=== PATIENT | female | born 1965 | race Caucasian/White ===

== ENCOUNTER 2020-12-07 13:04 | Inpatient (IN) | payer MEDICAID ==
[~2020-12-07] VITALS: Ht 165.1 cm; Wt 78.6 kg
[2020-12-07] MEDS ORDERED: KETOROLAC 30MG/ML VIAL IV STA (14:01)
[2020-12-07] MEDS ORDERED: AZITHROMYCIN 500 MG in DEXT 5% WATER 250 ML IV SCH (14:15)
[2020-12-07 14:27] LABS: BASOPHILS % 0.3 % (0.0-2.0); HEMATOCRIT. 42.3 % (36.0-48.0); HEMOGLOBIN. 14.3 g/dL (12.0-16.0); LYMPHOCYTES % 12.1 % (20.0-50.0); MEAN CORPUSCULAR HEMOGLOBIN 29.6 pg (28.0-32.0); MEAN CORPUSCULAR VOLUME 87.8 fL (81.0-99.0); MEAN PLATELET VOLUME 9.5 fl (7.4-10.4); MONOCYTES % 7.7 % (2.0-8.0); NEUTROPHILS % 79.9 % (40.0-76.0); PLATELET 159 x1000/uL (130-400); RED BLOOD CELL COUNT 4.82 mill/uL (4.2-5.4); RED CELL DISTRIBUTION WIDTH 12.9 % (11.6-14.6)
[2020-12-07 14:35] LABS: CHLORIDE 97 mEq/L (98-107)
[2020-12-07 14:46] LABS: D-DIMER 1.45 mg/L FEU (<0.50); PROTHROMBIN TIME 10.5 sec (9.6-11.0)
[2020-12-07 14:48] LABS: ETHANOL BLOOD < 10 mg/dL
[2020-12-07 14:52] LABS: BG CARBOXYHEMOGLOBIN 0.7 % (0.5-1.5); BG DEOXYHEMOGLOBIN 1.5 % (0.0-5.0); BG FRACTION INSPIRED OXYGEN 40; BG HCO3 ACT 19.7 mmol/L (22.0-26.0); BG METHEMOGLOBIN 0.3 % (0.0-1.5); BG OXYGEN SATURATION 98.5 % (92.0-98.5); BG OXYHEMOGLOBIN 97.5 % (94.0-97.0); BG PCO2 29.2 mmHg (35.0-45.0); BG PH 7.448 (7.350-7.450); BG PO2 121.1 mmHg (75.0-100.0); BG SAMPLE SITE LEFT BRACHIAL; BG TOTAL HEMOGLOBIN 13.9 g/dL (12.0-18.0); BG VENT MODE NASAL CANNULA
[2020-12-07 16:18] LABS: *AMPHETAMINES SCREEN URINE NEGATIVE (NEGATIVE); *BARBITURATES SCREEN URINE NEGATIVE (NEGATIVE); *BENZODIAZEPINES SCREEN URINE NEGATIVE (NEGATIVE); *COCAINE SCREEN URINE NEGATIVE (NEGATIVE); METHADONE URINE SCREEN NEGATIVE (NEGATIVE); OPIATES URINE SCREEN NEGATIVE (NEGATIVE)
[2020-12-07 16:19] LABS: CANNABINOID URINE SCREEN NEGATIVE (NEGATIVE); PHENCYCLIDINE URINE SCREEN NEGATIVE (NEGATIVE)
[2020-12-07] MEDS ORDERED: KETOROLAC 15MG/ML VIAL IV PRN (16:30)
[2020-12-07] MEDS ORDERED: MAGNESIUM/ALUMINUM HYDROXIDE/SIMETHICONE 30ML UDC PO PRN (16:30)
[2020-12-07] MEDS ORDERED: NITROGLYCERIN 0.4MG TABLET SL SL PRN (16:30)
[2020-12-07] MEDS ORDERED: ZOLPIDEM TARTRATE 5MG TABLET PO PRN (16:30)
[2020-12-07] MEDS ORDERED: ALBUTEROL 6.7GM HFA INHALER ORI PRN (16:30)
[2020-12-07] MEDS ORDERED: DEXAMETHASONE 10 MG/ML VIAL IV SCH (16:30)
[2020-12-07] MEDS: CEFTRIAXONE 1 G PREMIX 50 ML IV SCH (17:14)
[2020-12-07] MEDS: DEXAMETHASONE 10 MG/ML VIAL IV SCH ×2 (17:14→22:10)
[2020-12-07] MEDS: ENOXAPARIN 40MG/0.4ML SYR SUBCUT SCH (17:15)
[2020-12-07] MEDS: BLOOD SUGAR DIAGNOSTIC STRIP TEST SCH ×2 (17:33→21:00)
[2020-12-07] MEDS: INSULIN LISPRO 100 UNITS/ML SUBCUT SCH ×2 (18:48→22:11)
[2020-12-07] MEDS ORDERED: DEXAMETHASONE 4MG/ML 1ML VIAL IV NR (19:45)
[2020-12-07] MEDS ORDERED: INSULIN GLARGINE UD 100 UNITS/ML SYR SUBCUT SCH (22:00)
[2020-12-07] MEDS: ASCORBIC ACID 500 MG TABLET PO SCH (22:11)
[2020-12-07] MEDS: FAMOTIDINE 20MG TABLET PO SCH (22:11)
[2020-12-07] MEDS: GUAIFENESIN/DM 600MG/30MG ER TAB 12HR PO SCH (22:11)
[2020-12-07] MEDS: ALBUTEROL 6.7GM HFA INHALER ORI SCH (22:32)
[2020-12-07 22:49] LABS: CREATINE KINASE 76 IU/L (26-192)
[2020-12-07 22:50] LABS: CREATINE KINASE MB FRACTION < 1.0 ng/mL (0.5-3.6)
[2020-12-08] MEDS: ALBUTEROL 6.7GM HFA INHALER ORI SCH ×4 (02:15→21:00)
[2020-12-08 05:19] LABS: BASOPHILS % 0.2 % (0.0-2.0); HEMATOCRIT. 37.9 % (36.0-48.0); HEMOGLOBIN. 13.2 g/dL (12.0-16.0); LYMPHOCYTES % 19.7 % (20.0-50.0); MEAN CORPUSCULAR HEMOGLOBIN 30.4 pg (28.0-32.0); MEAN CORPUSCULAR VOLUME 87.3 fL (81.0-99.0); MEAN PLATELET VOLUME 9.3 fl (7.4-10.4); MONOCYTES % 5.2 % (2.0-8.0); NEUTROPHILS % 74.9 % (40.0-76.0); PLATELET 161 x1000/uL (130-400); RED BLOOD CELL COUNT 4.34 mill/uL (4.2-5.4); RED CELL DISTRIBUTION WIDTH 13.2 % (11.6-14.6)
[2020-12-08 05:29] LABS: CHLORIDE 101 mEq/L (98-107)
[2020-12-08 05:35] LABS: PHOSPHORUS 3.2 mg/dL (2.5-4.9)
[2020-12-08 05:38] LABS: CREATINE KINASE 68 IU/L (26-192)
[2020-12-08 05:40] LABS: CREATINE KINASE MB FRACTION < 1.0 ng/mL (0.5-3.6)
[2020-12-08] MEDS: BLOOD SUGAR DIAGNOSTIC STRIP TEST SCH ×4 (06:56→21:37)
[2020-12-08] MEDS: INSULIN LISPRO 100 UNITS/ML SUBCUT SCH ×4 (07:00→21:36)
[2020-12-08] MEDS: CEFTRIAXONE 1 G PREMIX 50 ML IV SCH (08:57)
[2020-12-08] MEDS: FAMOTIDINE 20MG TABLET PO SCH ×2 (08:57→21:35)
[2020-12-08] MEDS: ZINC SULFATE 220 MG ( 50 ) CAPSULE PO SCH (08:57)
[2020-12-08] MEDS: ASCORBIC ACID 500 MG TABLET PO SCH ×2 (08:57→21:35)
[2020-12-08] MEDS: ASPIRIN 81MG EC TABLET PO SCH (08:57)
[2020-12-08] MEDS: GUAIFENESIN/DM 600MG/30MG ER TAB 12HR PO SCH ×2 (08:57→21:34)
[2020-12-08] MEDS: CHOLECALCIFEROL (D3) 1000 UNIT TABLET PO SCH (08:58)
[2020-12-08] MEDS: ENOXAPARIN 40MG/0.4ML SYR SUBCUT SCH (08:58)
[2020-12-08] MEDS ORDERED: AZITHROMYCIN 500 MG in DEXT 5% WATER 250 ML IV SCH (14:00)
[2020-12-08] MEDS ORDERED: METF500S7 PO (15:57)
[2020-12-08 16:00] VITALS: BP 114/73
[2020-12-08 16:03] VITALS: BP 128/75
[2020-12-08 20:00] VITALS: BP 167/95
[2020-12-08] MEDS: CLONIDINE 0.1MG TABLET PO PRN (21:35)
[2020-12-08] MEDS: INSULIN GLARGINE UD 100 UNITS/ML SYR SUBCUT SCH (21:36)
[2020-12-08] MEDS: GUAIFENESIN 200MG/10ML SUGAR FREE UDC PO PRN (21:36)
[2020-12-08] MEDS: ONDANSETRON HCL 4MG/2ML INJ IV PRN (21:38)
[2020-12-09 00:14] VITALS: BP 118/70
[2020-12-09] MEDS: ALBUTEROL 6.7GM HFA INHALER ORI SCH ×4 (02:47→21:00)
[2020-12-09 04:00] VITALS: BP 106/58
[2020-12-09] MEDS: ACETAMINOPHEN 325MG TABLET PO PRN ×2 (05:27→17:26)
[2020-12-09] MEDS: BLOOD SUGAR DIAGNOSTIC STRIP TEST SCH ×4 (07:40→21:53)
[2020-12-09 08:00] VITALS: BP 110/71
[2020-12-09] MEDS: FAMOTIDINE 20MG TABLET PO SCH ×2 (09:00→21:50)
[2020-12-09] MEDS: ENOXAPARIN 40MG/0.4ML SYR SUBCUT SCH (09:23)
[2020-12-09] MEDS: CEFTRIAXONE 1,000 MG in DEXTROSE 5% WATER 50 ML IV SCH (09:23)
[2020-12-09] MEDS: CHOLECALCIFEROL (D3) 1000 UNIT TABLET PO SCH (09:24)
[2020-12-09] MEDS: ASPIRIN 81MG EC TABLET PO SCH (09:24)
[2020-12-09] MEDS: ASCORBIC ACID 500 MG TABLET PO SCH ×2 (09:24→21:56)
[2020-12-09] MEDS: GUAIFENESIN/DM 600MG/30MG ER TAB 12HR PO SCH ×2 (09:24→21:50)
[2020-12-09] MEDS: DEXAMETHASONE 10 MG/ML VIAL IV SCH (09:24)
[2020-12-09] MEDS: ZINC SULFATE 220 MG ( 50 ) CAPSULE PO SCH (09:24)
[2020-12-09] MEDS: INSULIN LISPRO 100 UNITS/ML SUBCUT SCH ×4 (09:28→21:52)
[2020-12-09 12:00] VITALS: BP 118/76
[2020-12-09] MEDS: AZITHROMYCIN 500 MG in DEXT 5% WATER 250 ML IV SCH (13:59)
[2020-12-09 16:00] VITALS: BP 122/76
[2020-12-09] MEDS: GUAIFENESIN 200MG/10ML SUGAR FREE UDC PO PRN (17:25)
[2020-12-09 20:00] VITALS: BP 115/70
[2020-12-09] MEDS: INSULIN GLARGINE UD 100 UNITS/ML SYR SUBCUT SCH (21:52)
[2020-12-10] VITALS: BP 116/66
[2020-12-10] MEDS: ALBUTEROL 6.7GM HFA INHALER ORI SCH ×4 (03:00→20:38)
[2020-12-10 04:00] VITALS: BP 139/62
[2020-12-10] MEDS: BLOOD SUGAR DIAGNOSTIC STRIP TEST SCH ×4 (06:48→20:39)
[2020-12-10 08:00] VITALS: BP 131/78
[2020-12-10] MEDS: INSULIN LISPRO 100 UNITS/ML SUBCUT SCH ×4 (08:12→20:40)
[2020-12-10] MEDS: CHOLECALCIFEROL (D3) 1000 UNIT TABLET PO SCH (08:13)
[2020-12-10] MEDS: ZINC SULFATE 220 MG ( 50 ) CAPSULE PO SCH (08:13)
[2020-12-10] MEDS: ASPIRIN 81MG EC TABLET PO SCH (08:13)
[2020-12-10] MEDS: DEXAMETHASONE 10 MG/ML VIAL IV SCH (08:13)
[2020-12-10] MEDS: ASCORBIC ACID 500 MG TABLET PO SCH ×2 (08:13→20:38)
[2020-12-10] MEDS: FAMOTIDINE 20MG TABLET PO SCH ×2 (08:13→20:38)
[2020-12-10] MEDS: GUAIFENESIN/DM 600MG/30MG ER TAB 12HR PO SCH ×2 (08:13→20:38)
[2020-12-10] MEDS: ENOXAPARIN 40MG/0.4ML SYR SUBCUT SCH (08:14)
[2020-12-10] MEDS: CEFTRIAXONE 1,000 MG in DEXTROSE 5% WATER 50 ML IV SCH (08:15)
[2020-12-10 12:00] VITALS: BP 115/76
[2020-12-10] MEDS: AZITHROMYCIN 500 MG in DEXT 5% WATER 250 ML IV SCH (12:55)
[2020-12-10 16:00] VITALS: BP 119/68
[2020-12-10 20:00] VITALS: BP 115/90
[2020-12-10] MEDS: ACETAMINOPHEN 325MG TABLET PO PRN (20:39)
[2020-12-10] MEDS: INSULIN GLARGINE UD 100 UNITS/ML SYR SUBCUT SCH (21:08)
[2020-12-11] VITALS: BP 105/70
[2020-12-11] MEDS: ALBUTEROL 6.7GM HFA INHALER ORI SCH ×4 (03:00→21:39)
[2020-12-11 04:00] VITALS: BP 119/72
[2020-12-11] MEDS: BLOOD SUGAR DIAGNOSTIC STRIP TEST SCH ×4 (07:23→21:41)
[2020-12-11 08:00] VITALS: BP 149/80
[2020-12-11] MEDS: DEXAMETHASONE 10 MG/ML VIAL IV SCH (08:11)
[2020-12-11] MEDS: ASPIRIN 81MG EC TABLET PO SCH (08:11)
[2020-12-11] MEDS: CHOLECALCIFEROL (D3) 1000 UNIT TABLET PO SCH (08:11)
[2020-12-11] MEDS: FAMOTIDINE 20MG TABLET PO SCH ×2 (08:11→21:39)
[2020-12-11] MEDS: ASCORBIC ACID 500 MG TABLET PO SCH ×2 (08:11→21:39)
[2020-12-11] MEDS: ZINC SULFATE 220 MG ( 50 ) CAPSULE PO SCH (08:11)
[2020-12-11] MEDS: GUAIFENESIN/DM 600MG/30MG ER TAB 12HR PO SCH ×2 (08:11→21:38)
[2020-12-11] MEDS: CEFTRIAXONE 1,000 MG in DEXTROSE 5% WATER 50 ML IV SCH (08:11)
[2020-12-11] MEDS: INSULIN LISPRO 100 UNITS/ML SUBCUT SCH ×4 (08:14→21:40)
[2020-12-11] MEDS: ENOXAPARIN 40MG/0.4ML SYR SUBCUT SCH (08:15)
[2020-12-11 12:00] VITALS: BP 118/75
[2020-12-11] MEDS: AZITHROMYCIN 500 MG in DEXT 5% WATER 250 ML IV SCH (12:14)
[2020-12-11 20:00] VITALS: BP 127/65
[2020-12-11] MEDS: FLUTICASONE PROPIONATE 50MCG/SPRAY BOTTLE BOTHNSTRLS SCH (21:38)
[2020-12-11] MEDS: INSULIN GLARGINE UD 100 UNITS/ML SYR SUBCUT SCH (21:41)
[2020-12-12] VITALS: BP 121/79
[2020-12-12 04:00] VITALS: BP 110/71
[2020-12-12] MEDS: ALBUTEROL 6.7GM HFA INHALER ORI SCH ×4 (04:07→21:36)
[2020-12-12] MEDS: BLOOD SUGAR DIAGNOSTIC STRIP TEST SCH ×4 (07:40→21:35)
[2020-12-12 08:00] VITALS: BP 133/53
[2020-12-12] MEDS: ZINC SULFATE 220 MG ( 50 ) CAPSULE PO SCH (08:16)
[2020-12-12] MEDS: GUAIFENESIN/DM 600MG/30MG ER TAB 12HR PO SCH ×2 (08:16→21:33)
[2020-12-12] MEDS: ASCORBIC ACID 500 MG TABLET PO SCH ×2 (08:16→21:33)
[2020-12-12] MEDS: DEXAMETHASONE 10 MG/ML VIAL IV SCH (08:16)
[2020-12-12] MEDS: ENOXAPARIN 40MG/0.4ML SYR SUBCUT SCH (08:16)
[2020-12-12] MEDS: FAMOTIDINE 20MG TABLET PO SCH ×2 (08:16→21:33)
[2020-12-12] MEDS: CHOLECALCIFEROL (D3) 1000 UNIT TABLET PO SCH (08:16)
[2020-12-12] MEDS: ASPIRIN 81MG EC TABLET PO SCH (08:16)
[2020-12-12] MEDS: FLUTICASONE PROPIONATE 50MCG/SPRAY BOTTLE BOTHNSTRLS SCH ×2 (08:17→21:37)
[2020-12-12] MEDS: INSULIN LISPRO 100 UNITS/ML SUBCUT SCH ×4 (08:24→21:35)
[2020-12-12 12:00] VITALS: BP 103/59
[2020-12-12 16:00] VITALS: BP 133/84
[2020-12-12 20:48] VITALS: BP 134/75
[2020-12-12] MEDS: INSULIN GLARGINE UD 100 UNITS/ML SYR SUBCUT SCH (21:35)
[2020-12-13] VITALS (8 sets, daily range): BP systolic 98–164; BP diastolic 55–85
[2020-12-13] MEDS: ALBUTEROL 6.7GM HFA INHALER ORI SCH ×4 (02:55→21:10)
[2020-12-13] MEDS: BLOOD SUGAR DIAGNOSTIC STRIP TEST SCH ×4 (06:42→21:00)
[2020-12-13] MEDS: ONDANSETRON HCL 4MG/2ML INJ IV PRN (06:42)
[2020-12-13] MEDS: INSULIN LISPRO 100 UNITS/ML SUBCUT SCH ×4 (07:58→22:00)
[2020-12-13] MEDS: DEXAMETHASONE 10 MG/ML VIAL IV SCH (08:21)
[2020-12-13] MEDS: FLUTICASONE PROPIONATE 50MCG/SPRAY BOTTLE BOTHNSTRLS SCH ×2 (08:21→21:13)
[2020-12-13] MEDS: ENOXAPARIN 40MG/0.4ML SYR SUBCUT SCH (08:21)
[2020-12-13] MEDS: ZINC SULFATE 220 MG ( 50 ) CAPSULE PO SCH (08:22)
[2020-12-13] MEDS: CLONIDINE 0.1MG TABLET PO PRN (08:22)
[2020-12-13] MEDS: FAMOTIDINE 20MG TABLET PO SCH ×2 (08:22→21:59)
[2020-12-13] MEDS: ASPIRIN 81MG EC TABLET PO SCH (08:22)
[2020-12-13] MEDS: CHOLECALCIFEROL (D3) 1000 UNIT TABLET PO SCH (08:22)
[2020-12-13] MEDS: ASCORBIC ACID 500 MG TABLET PO SCH ×2 (08:22→21:59)
[2020-12-13] MEDS: GUAIFENESIN/DM 600MG/30MG ER TAB 12HR PO SCH ×2 (08:22→21:59)
[2020-12-13] MEDS: KETOROLAC 30MG/ML VIAL IV PRN (10:24)
[2020-12-13] MEDS: ACETAMINOPHEN 325MG TABLET PO PRN (15:58)
[2020-12-13] MEDS ORDERED: INSULIN LISPRO 100 UNITS/ML SUBCUT NR (17:15)
[2020-12-13] MEDS ORDERED: LOPERAMIDE HCL 2MG CAPSULE PO PRN (21:45)
[2020-12-13] MEDS: INSULIN GLARGINE UD 100 UNITS/ML SYR SUBCUT SCH (22:01)
[2020-12-14] VITALS: BP 136/76
[2020-12-14] MEDS: GUAIFENESIN 200MG/10ML SUGAR FREE UDC PO PRN (01:49)
[2020-12-14] MEDS: KETOROLAC 30MG/ML VIAL IV PRN (01:50)
[2020-12-14] MEDS: ALBUTEROL 6.7GM HFA INHALER ORI SCH ×4 (03:00→21:47)
[2020-12-14 04:00] VITALS: BP 114/64
[2020-12-14] MEDS: BLOOD SUGAR DIAGNOSTIC STRIP TEST SCH ×4 (07:01→21:45)
[2020-12-14] MEDS: INSULIN LISPRO 100 UNITS/ML SUBCUT SCH ×4 (07:38→21:45)
[2020-12-14 07:59] VITALS: BP 134/82
[2020-12-14] MEDS: FLUTICASONE PROPIONATE 50MCG/SPRAY BOTTLE BOTHNSTRLS SCH (08:12)
[2020-12-14] MEDS: CHOLECALCIFEROL (D3) 1000 UNIT TABLET PO SCH (08:13)
[2020-12-14] MEDS: GUAIFENESIN/DM 600MG/30MG ER TAB 12HR PO SCH ×2 (08:13→21:44)
[2020-12-14] MEDS: DEXAMETHASONE 10 MG/ML VIAL IV SCH (08:14)
[2020-12-14] MEDS: ZINC SULFATE 220 MG ( 50 ) CAPSULE PO SCH (08:14)
[2020-12-14] MEDS: ENOXAPARIN 40MG/0.4ML SYR SUBCUT SCH (08:14)
[2020-12-14] MEDS: ASPIRIN 81MG EC TABLET PO SCH (08:14)
[2020-12-14] MEDS: FAMOTIDINE 20MG TABLET PO SCH ×2 (08:14→21:44)
[2020-12-14] MEDS: ASCORBIC ACID 500 MG TABLET PO SCH ×2 (08:14→21:44)
[2020-12-14] MEDS: ACETAMINOPHEN 325MG TABLET PO PRN (08:15)
[2020-12-14 12:07] VITALS: BP 132/75
[2020-12-14 15:48] VITALS: BP 127/88
[2020-12-14 20:00] VITALS: BP 147/79
[2020-12-14 20:38] LABS: HEMATOCRIT. 36.4 % (36.0-48.0); HEMOGLOBIN. 12.2 g/dL (12.0-16.0); MEAN CORPUSCULAR HEMOGLOBIN 29.2 pg (28.0-32.0); MEAN CORPUSCULAR VOLUME 87.5 fL (81.0-99.0); MEAN PLATELET VOLUME 8.3 fl (7.4-10.4); PLATELET 481 x1000/uL (130-400); RED BLOOD CELL COUNT 4.16 mill/uL (4.2-5.4); RED CELL DISTRIBUTION WIDTH 12.9 % (11.6-14.6)
[2020-12-14 20:47] LABS: CHLORIDE 107 mEq/L (98-107)
[2020-12-14] MEDS: INSULIN GLARGINE UD 100 UNITS/ML SYR SUBCUT SCH (21:45)
[2020-12-14] MEDS: ONDANSETRON HCL 4MG/2ML INJ IV PRN (22:01)
[2020-12-14 22:09] LABS: PLATELET ESTIMATE INCREASED
[2020-12-15] VITALS: BP 126/81
[2020-12-15] MEDS: ONDANSETRON HCL 4MG/2ML INJ IV PRN ×3 (02:37→21:07)
[2020-12-15 04:00] VITALS: BP 151/89
[2020-12-15] MEDS: BLOOD SUGAR DIAGNOSTIC STRIP TEST SCH ×4 (07:11→20:55)
[2020-12-15 07:57] VITALS: BP 157/90
[2020-12-15] MEDS: DEXAMETHASONE 10 MG/ML VIAL IV SCH (08:57)
[2020-12-15] MEDS: ENOXAPARIN 40MG/0.4ML SYR SUBCUT SCH (08:57)
[2020-12-15] MEDS: ASPIRIN 81MG EC TABLET PO SCH (08:58)
[2020-12-15] MEDS: CHOLECALCIFEROL (D3) 1000 UNIT TABLET PO SCH (08:58)
[2020-12-15] MEDS: GUAIFENESIN/DM 600MG/30MG ER TAB 12HR PO SCH ×2 (08:58→20:54)
[2020-12-15] MEDS: ZINC SULFATE 220 MG ( 50 ) CAPSULE PO SCH (08:58)
[2020-12-15] MEDS: FAMOTIDINE 20MG TABLET PO SCH ×2 (08:58→20:55)
[2020-12-15] MEDS: ASCORBIC ACID 500 MG TABLET PO SCH ×2 (08:58→20:55)
[2020-12-15] MEDS: ALBUTEROL 6.7GM HFA INHALER ORI SCH ×3 (08:59→20:58)
[2020-12-15] MEDS: ACETAMINOPHEN 325MG TABLET PO PRN (09:01)
[2020-12-15] MEDS: INSULIN LISPRO 100 UNITS/ML SUBCUT SCH ×4 (09:02→20:55)
[2020-12-15 12:00] VITALS: BP 149/78
[2020-12-15] MEDS ORDERED: CEFTRIAXONE 1,000 MG in DEXTROSE 5% WATER 50 ML IV SCH (12:00)
[2020-12-15] MEDS: AZITHROMYCIN 500 MG in DEXT 5% WATER 250 ML IV SCH (12:40)
[2020-12-15 16:00] VITALS: BP 122/73
[2020-12-15] MEDS: CEFEPIME 2,000 MG in DEXT 5% WATER 100 ML IV SCH (18:12)
[2020-12-15 20:00] VITALS: BP 128/76
[2020-12-15] MEDS: INSULIN GLARGINE UD 100 UNITS/ML SYR SUBCUT SCH (20:57)
[2020-12-16] VITALS (9 sets, daily range): BP systolic 105–178; BP diastolic 62–92
[2020-12-16] MEDS: KETOROLAC 30MG/ML VIAL IV PRN (00:43)
[2020-12-16] MEDS: ALBUTEROL 6.7GM HFA INHALER ORI SCH ×4 (02:07→15:30)
[2020-12-16] MEDS: CEFEPIME 2,000 MG in DEXT 5% WATER 100 ML IV SCH ×2 (05:10→20:17)
[2020-12-16] MEDS: BLOOD SUGAR DIAGNOSTIC STRIP TEST SCH ×4 (06:17→21:18)
[2020-12-16] MEDS: INSULIN LISPRO 100 UNITS/ML SUBCUT SCH ×4 (07:38→21:17)
[2020-12-16] MEDS: ZINC SULFATE 220 MG ( 50 ) CAPSULE PO SCH (08:04)
[2020-12-16] MEDS: GUAIFENESIN 200MG/10ML SUGAR FREE UDC PO PRN (08:04)
[2020-12-16] MEDS: ASCORBIC ACID 500 MG TABLET PO SCH ×2 (08:04→21:17)
[2020-12-16] MEDS: ACETAMINOPHEN 325MG TABLET PO PRN ×2 (08:05→12:28)
[2020-12-16] MEDS: FAMOTIDINE 20MG TABLET PO SCH ×2 (08:05→21:17)
[2020-12-16] MEDS: CHOLECALCIFEROL (D3) 1000 UNIT TABLET PO SCH (08:05)
[2020-12-16] MEDS: CLONIDINE 0.1MG TABLET PO PRN (08:05)
[2020-12-16] MEDS: ASPIRIN 81MG EC TABLET PO SCH (08:06)
[2020-12-16] MEDS: ENOXAPARIN 40MG/0.4ML SYR SUBCUT SCH (08:06)
[2020-12-16] MEDS: ONDANSETRON HCL 4MG/2ML INJ IV PRN (08:06)
[2020-12-16] MEDS: GUAIFENESIN/DM 600MG/30MG ER TAB 12HR PO SCH ×2 (08:06→21:17)
[2020-12-16] MEDS: DEXAMETHASONE 10 MG/ML VIAL IV SCH (08:06)
[2020-12-16] MEDS: AZITHROMYCIN 500 MG in DEXT 5% WATER 250 ML IV SCH (12:28)
[2020-12-16] MEDS: INSULIN GLARGINE UD 100 UNITS/ML SYR SUBCUT SCH (21:17)
[2020-12-17] VITALS (12 sets, daily range): BP systolic 114–148; BP diastolic 68–89
[2020-12-17] MEDS: KETOROLAC 30MG/ML VIAL IV PRN (03:59)
[2020-12-17] MEDS: BLOOD SUGAR DIAGNOSTIC STRIP TEST SCH ×4 (05:57→21:00)
[2020-12-17] MEDS: CEFEPIME 2,000 MG in DEXT 5% WATER 100 ML IV SCH ×2 (05:58→17:37)
[2020-12-17 06:42] LABS: HEMATOCRIT. 36.8 % (36.0-48.0); HEMOGLOBIN. 12.2 g/dL (12.0-16.0); MEAN CORPUSCULAR HEMOGLOBIN 29.5 pg (28.0-32.0); MEAN CORPUSCULAR VOLUME 88.7 fL (81.0-99.0); MEAN PLATELET VOLUME 7.8 fl (7.4-10.4); PLATELET 525 x1000/uL (130-400); RED BLOOD CELL COUNT 4.15 mill/uL (4.2-5.4)
[2020-12-17 06:52] LABS: CHLORIDE 107 mEq/L (98-107)
[2020-12-17] MEDS: INSULIN LISPRO 100 UNITS/ML SUBCUT SCH ×4 (07:20→22:04)
[2020-12-17] MEDS: ENOXAPARIN 40MG/0.4ML SYR SUBCUT SCH (08:48)
[2020-12-17] MEDS: FAMOTIDINE 20MG TABLET PO SCH ×2 (08:48→22:03)
[2020-12-17] MEDS: DEXAMETHASONE 10 MG/ML VIAL IV SCH (08:48)
[2020-12-17] MEDS: GUAIFENESIN/DM 600MG/30MG ER TAB 12HR PO SCH ×2 (08:48→22:03)
[2020-12-17] MEDS: ASPIRIN 81MG EC TABLET PO SCH (08:49)
[2020-12-17] MEDS: CHOLECALCIFEROL (D3) 1000 UNIT TABLET PO SCH (08:49)
[2020-12-17] MEDS: ZINC SULFATE 220 MG ( 50 ) CAPSULE PO SCH (08:49)
[2020-12-17] MEDS: ASCORBIC ACID 500 MG TABLET PO SCH ×2 (08:49→21:00)
[2020-12-17] MEDS: ONDANSETRON HCL 4MG/2ML INJ IV PRN (09:05)
[2020-12-17 09:51] LABS: BG BASE EXCESS -1.9 mmol/L (-2.0-2.0); BG CARBOXYHEMOGLOBIN 0.1 % (0.5-1.5); BG FRACTION INSPIRED OXYGEN 100; BG HCO3 ACT 21.1 mmol/L (22.0-26.0); BG OXYHEMOGLOBIN 75.9 % (94.0-97.0); BG PCO2 30.8 mmHg (35.0-45.0); BG PH 7.453 (7.350-7.450); BG PO2 39.3 mmHg (75.0-100.0); BG SAMPLE SITE LEFT RADIAL; BG TOTAL HEMOGLOBIN 12.8 g/dL (12.0-18.0); BG VENT MODE HIGH FLOW+nrb
[2020-12-17] MEDS: METHYLPREDNISOLONE SOD SUCC 125 MG/2 ML VIAL IV SCH ×2 (15:21→22:18)
[2020-12-17] MEDS: INSULIN GLARGINE UD 100 UNITS/ML SYR SUBCUT SCH (22:04)
[2020-12-17 22:25] LABS: PLATELET ESTIMATE INCREASED
[2020-12-18] VITALS (71 sets, daily range): BP systolic 61–181; BP diastolic 34–116
[2020-12-18] MEDS ORDERED: ALBUTEROL (0.083%) 2.5MG/3ML NEB ONE (04:24)
[2020-12-18] MEDS ORDERED: IPRATROPIUM/ALBUTEROL 0.5-3(2.5)MG/3ML NEB ONE (04:25)
[2020-12-18 04:35] LABS: BG CARBOXYHEMOGLOBIN 0.4 % (0.5-1.5); BG DEOXYHEMOGLOBIN 22.5 % (0.0-5.0); BG FRACTION INSPIRED OXYGEN 100; BG HCO3 ACT 23.6 mmol/L (22.0-26.0); BG METHEMOGLOBIN 0.3 % (0.0-1.5); BG OXYGEN SATURATION 77.3 % (92.0-98.5); BG OXYHEMOGLOBIN 76.8 % (94.0-97.0); BG PCO2 43.5 mmHg (35.0-45.0); BG PH 7.353 (7.350-7.450); BG PO2 46.7 mmHg (75.0-100.0); BG SAMPLE SITE LEFT RADIAL; BG TOTAL HEMOGLOBIN 13.9 g/dL (12.0-18.0); BG VENT MODE MASK - BIPAP
[2020-12-18] MEDS: METHYLPREDNISOLONE SOD SUCC 125 MG/2 ML VIAL IV SCH ×3 (05:58→21:55)
[2020-12-18] MEDS: CEFEPIME 2,000 MG in DEXT 5% WATER 100 ML IV SCH (05:58)
[2020-12-18] MEDS: BLOOD SUGAR DIAGNOSTIC STRIP TEST SCH ×4 (06:50→21:50)
[2020-12-18] MEDS ORDERED: MIDAZOLAM 100MG/100ML PMX 100 ML IV PRN (08:45)
[2020-12-18] MEDS: FENTANYL CITRATE/PF 2,500 MCG in SODIUM CHLORIDE 0.9% 200 ML IV PRN (09:07)
[2020-12-18] MEDS: PHENYLEPHRINE 100 MG in DEXT 5% WATER 240 ML IV PRN (09:08)
[2020-12-18] MEDS: PROPOFOL 10MG/ML 100ML 100 ML IV PRN ×4 (09:16→20:28)
[2020-12-18] MEDS: CHOLECALCIFEROL (D3) 1000 UNIT TABLET PO SCH (10:08)
[2020-12-18] MEDS: ASPIRIN 81MG EC TABLET PO SCH (10:08)
[2020-12-18] MEDS: ZINC SULFATE 220 MG ( 50 ) CAPSULE PO SCH (10:08)
[2020-12-18] MEDS: ASCORBIC ACID 500 MG TABLET PO SCH ×2 (10:08→21:55)
[2020-12-18] MEDS: FAMOTIDINE 20MG TABLET PO SCH ×2 (10:08→21:55)
[2020-12-18] MEDS: ENOXAPARIN 40MG/0.4ML SYR SUBCUT SCH (10:08)
[2020-12-18] MEDS: GUAIFENESIN/DM 600MG/30MG ER TAB 12HR PO SCH ×2 (10:08→21:55)
[2020-12-18] MEDS: INSULIN LISPRO 100 UNITS/ML SUBCUT SCH ×4 (10:09→21:59)
[2020-12-18 10:27] LABS: BG BASE EXCESS -8.1 mmol/L (-2.0-2.0); BG CARBOXYHEMOGLOBIN 0.3 % (0.5-1.5); BG DEOXYHEMOGLOBIN 11.3 % (0.0-5.0); BG FRACTION INSPIRED OXYGEN 100; BG HCO3 ACT 16.5 mmol/L (22.0-26.0); BG METHEMOGLOBIN 0.1 % (0.0-1.5); BG OXYGEN SATURATION 88.7 % (92.0-98.5); BG OXYHEMOGLOBIN 88.3 % (94.0-97.0); BG PCO2 31.4 mmHg (35.0-45.0); BG PH 7.339 (7.350-7.450); BG PO2 62.8 mmHg (75.0-100.0); BG SAMPLE SITE LEFT RADIAL; BG TOTAL HEMOGLOBIN 12.7 g/dL (12.0-18.0); BG VENT MODE VENT - AC
[2020-12-18] MEDS: MEROPENEM 1,000 MG in SODIUM CHLORIDE 0.9% 100 ML IV SCH ×2 (13:05→22:52)
[2020-12-18] MEDS ORDERED: VANCOMYCIN 1250MG in DEXTROSE 5% WATER 250ML IV NR (13:30)
[2020-12-18 15:07] LABS: BG BASE EXCESS -2.8 mmol/L (-2.0-2.0); BG CARBOXYHEMOGLOBIN 0.2 % (0.5-1.5); BG DEOXYHEMOGLOBIN 10.9 % (0.0-5.0); BG FRACTION INSPIRED OXYGEN 100; BG HCO3 ACT 21.8 mmol/L (22.0-26.0); BG METHEMOGLOBIN 0.2 % (0.0-1.5); BG OXYGEN SATURATION 89.1 % (92.0-98.5); BG OXYHEMOGLOBIN 88.7 % (94.0-97.0); BG PCO2 37.9 mmHg (35.0-45.0); BG PH 7.378 (7.350-7.450); BG PO2 59.7 mmHg (75.0-100.0); BG SAMPLE SITE RIGHT RADIAL; BG TOTAL HEMOGLOBIN 16.3 g/dL (12.0-18.0); BG VENT MODE VENT - PRVC
[2020-12-18] MEDS: MIDAZOLAM HCL 100 MG in SODIUM CHLORIDE 0.9% 100 ML IV PRN (16:41)
[2020-12-18] MEDS: ALBUTEROL 6.7GM HFA INHALER ORI SCH (21:35)
[2020-12-18] MEDS: INSULIN GLARGINE UD 100 UNITS/ML SYR SUBCUT SCH (22:52)
[2020-12-19] VITALS (92 sets, daily range): BP systolic 88–202; BP diastolic 53–104
[2020-12-19] MEDS: PROPOFOL 10MG/ML 100ML 100 ML IV PRN ×4 (00:16→18:41)
[2020-12-19] MEDS: ALBUTEROL 6.7GM HFA INHALER ORI SCH ×4 (00:55→20:46)
[2020-12-19] MEDS: VANCOMYCIN 1 G PREMIX 200 ML IV SCH ×2 (02:37→13:09)
[2020-12-19] MEDS: MIDAZOLAM HCL 100 MG in SODIUM CHLORIDE 0.9% 100 ML IV PRN (02:39)
[2020-12-19 05:08] LABS: HEMATOCRIT. 34.8 % (36.0-48.0); HEMOGLOBIN. 11.3 g/dL (12.0-16.0); MEAN CORPUSCULAR HEMOGLOBIN 29.1 pg (28.0-32.0); MEAN CORPUSCULAR VOLUME 89.4 fL (81.0-99.0); MEAN PLATELET VOLUME 8.2 fl (7.4-10.4); PLATELET 514 x1000/uL (130-400); RED BLOOD CELL COUNT 3.89 mill/uL (4.2-5.4); RED CELL DISTRIBUTION WIDTH 13.3 % (11.6-14.6)
[2020-12-19 05:17] LABS: CHLORIDE 106 mEq/L (98-107)
[2020-12-19] MEDS: BLOOD SUGAR DIAGNOSTIC STRIP TEST SCH ×4 (05:46→21:25)
[2020-12-19] MEDS: MEROPENEM 1,000 MG in SODIUM CHLORIDE 0.9% 100 ML IV SCH ×3 (05:52→21:36)
[2020-12-19] MEDS: METHYLPREDNISOLONE SOD SUCC 125 MG/2 ML VIAL IV SCH ×3 (05:52→21:36)
[2020-12-19] MEDS: INSULIN LISPRO 100 UNITS/ML SUBCUT SCH ×4 (06:00→21:37)
[2020-12-19] MEDS: FENTANYL CITRATE/PF 2,500 MCG in SODIUM CHLORIDE 0.9% 200 ML IV PRN (07:42)
[2020-12-19] MEDS: ZINC SULFATE 220 MG ( 50 ) CAPSULE PO SCH (08:03)
[2020-12-19] MEDS: ASCORBIC ACID 500 MG TABLET PO SCH ×2 (08:03→21:36)
[2020-12-19] MEDS: ENOXAPARIN 40MG/0.4ML SYR SUBCUT SCH (08:03)
[2020-12-19] MEDS: GUAIFENESIN/DM 600MG/30MG ER TAB 12HR PO SCH ×2 (08:03→21:36)
[2020-12-19] MEDS: ASPIRIN 81MG EC TABLET PO SCH (08:03)
[2020-12-19] MEDS: CHOLECALCIFEROL (D3) 1000 UNIT TABLET PO SCH (08:03)
[2020-12-19] MEDS: FAMOTIDINE 20MG TABLET PO SCH ×2 (08:03→21:36)
[2020-12-19 09:00] LABS: BG BASE EXCESS -2.2 mmol/L (-2.0-2.0); BG CARBOXYHEMOGLOBIN 0.3 % (0.5-1.5); BG DEOXYHEMOGLOBIN 12.6 % (0.0-5.0); BG FRACTION INSPIRED OXYGEN 100; BG HCO3 ACT 22.4 mmol/L (22.0-26.0); BG METHEMOGLOBIN 0.2 % (0.0-1.5); BG OXYGEN SATURATION 87.3 % (92.0-98.5); BG OXYHEMOGLOBIN 86.9 % (94.0-97.0); BG PCO2 37.8 mmHg (35.0-45.0); BG PH 7.391 (7.350-7.450); BG PO2 55.8 mmHg (75.0-100.0); BG SAMPLE SITE RIGHT RADIAL; BG TOTAL HEMOGLOBIN 12.2 g/dL (12.0-18.0); BG VENT MODE VENT - PRVC
[2020-12-19 11:28] LABS: T4 FREE 1.41 ng/dL (0.76-1.46)
[2020-12-19] MEDS ORDERED: LIDOCAINE HCL 1% 20ML VIAL (Pyxis) INJ ONE (11:53)
[2020-12-19 14:14] LABS: PLATELET ESTIMATE INCREASED
[2020-12-19] MEDS: INSULIN GLARGINE UD 100 UNITS/ML SYR SUBCUT SCH (21:38)
[2020-12-19] MEDS: NOREPINEPHRINE 8 MG in DEXT 5% WATER 242 ML IV PRN (22:46)
[2020-12-20] VITALS (72 sets, daily range): BP systolic 83–167; BP diastolic 55–103
[2020-12-20] MEDS: PROPOFOL 10MG/ML 100ML 100 ML IV PRN ×5 (00:15→22:53)
[2020-12-20] MEDS: METOCLOPRAMIDE HCL 10MG/2ML VIAL IV SCH ×5 (00:59→23:41)
[2020-12-20] MEDS: VANCOMYCIN 1 G PREMIX 200 ML IV SCH (01:00)
[2020-12-20] MEDS: ALBUTEROL 6.7GM HFA INHALER ORI SCH ×2 (03:00→08:52)
[2020-12-20] MEDS: FENTANYL CITRATE/PF 2,500 MCG in SODIUM CHLORIDE 0.9% 200 ML IV PRN ×2 (04:27→18:11)
[2020-12-20 05:47] LABS: CHLORIDE 106 mEq/L (98-107)
[2020-12-20] MEDS: BLOOD SUGAR DIAGNOSTIC STRIP TEST SCH ×4 (06:14→20:29)
[2020-12-20] MEDS: MEROPENEM 1,000 MG in SODIUM CHLORIDE 0.9% 100 ML IV SCH ×3 (06:19→21:31)
[2020-12-20] MEDS: METHYLPREDNISOLONE SOD SUCC 125 MG/2 ML VIAL IV SCH ×3 (06:19→21:31)
[2020-12-20] MEDS: INSULIN LISPRO 100 UNITS/ML SUBCUT SCH ×4 (06:21→20:31)
[2020-12-20 07:42] LABS: BG DEOXYHEMOGLOBIN 6.4 % (0.0-5.0); BG HCO3 ACT 22.6 mmol/L (22.0-26.0); BG METHEMOGLOBIN 0.2 % (0.0-1.5); BG OXYGEN SATURATION 93.6 % (92.0-98.5); BG OXYHEMOGLOBIN 93.4 % (94.0-97.0); BG PCO2 38.2 mmHg (35.0-45.0); BG PO2 73.5 mmHg (75.0-100.0); BG SAMPLE SITE RIGHT RADIAL; BG TOTAL HEMOGLOBIN 13.1 g/dL (12.0-18.0); BG VENT MODE VENT- PRVC
[2020-12-20] MEDS: ASCORBIC ACID 500 MG TABLET PO SCH ×2 (10:20→20:23)
[2020-12-20] MEDS: ZINC SULFATE 220 MG ( 50 ) CAPSULE PO SCH (10:20)
[2020-12-20] MEDS: GUAIFENESIN/DM 600MG/30MG ER TAB 12HR PO SCH ×2 (10:20→20:23)
[2020-12-20] MEDS: CHOLECALCIFEROL (D3) 1000 UNIT TABLET PO SCH (10:21)
[2020-12-20] MEDS: FAMOTIDINE 20MG TABLET PO SCH ×2 (10:21→20:23)
[2020-12-20] MEDS: ASPIRIN 81MG EC TABLET PO SCH (10:21)
[2020-12-20] MEDS: ENOXAPARIN 40MG/0.4ML SYR SUBCUT SCH (10:22)
[2020-12-20] MEDS ORDERED: IPRATROPIUM/ALBUTEROL 0.5-3(2.5)MG/3ML NEB HHN PRN (10:30)
[2020-12-20] MEDS ORDERED: VANCOMYCIN 1250MG in DEXTROSE 5% WATER 250ML IV SCH (18:00)
[2020-12-20] MEDS: MIDAZOLAM HCL 100 MG in SODIUM CHLORIDE 0.9% 100 ML IV PRN (19:45)
[2020-12-20] MEDS: IPRATROPIUM/ALBUTEROL 0.5-3(2.5)MG/3ML NEB HHN SCH (21:05)
[2020-12-20] MEDS: INSULIN GLARGINE UD 100 UNITS/ML SYR SUBCUT SCH (21:35)
[2020-12-21] VITALS (100 sets, daily range): BP systolic 73–194; BP diastolic 50–95
[2020-12-21] MEDS: NOREPINEPHRINE 8 MG in DEXT 5% WATER 242 ML IV PRN (00:26)
[2020-12-21] MEDS: IPRATROPIUM/ALBUTEROL 0.5-3(2.5)MG/3ML NEB HHN SCH ×6 (01:21→23:20)
[2020-12-21] MEDS: PROPOFOL 10MG/ML 100ML 100 ML IV PRN ×5 (02:18→23:17)
[2020-12-21] MEDS: MEROPENEM 1,000 MG in SODIUM CHLORIDE 0.9% 100 ML IV SCH (05:41)
[2020-12-21] MEDS: METOCLOPRAMIDE HCL 10MG/2ML VIAL IV SCH ×4 (05:41→23:27)
[2020-12-21] MEDS: METHYLPREDNISOLONE SOD SUCC 125 MG/2 ML VIAL IV SCH ×3 (05:41→21:56)
[2020-12-21] MEDS: BLOOD SUGAR DIAGNOSTIC STRIP TEST SCH ×4 (06:07→21:04)
[2020-12-21] MEDS: INSULIN LISPRO 100 UNITS/ML SUBCUT SCH ×4 (06:10→21:11)
[2020-12-21] MEDS: GUAIFENESIN/DM 600MG/30MG ER TAB 12HR PO SCH ×2 (08:32→21:04)
[2020-12-21] MEDS: ZINC SULFATE 220 MG ( 50 ) CAPSULE PO SCH (08:32)
[2020-12-21] MEDS: ASPIRIN 81MG TABLET PO SCH (08:32)
[2020-12-21] MEDS: CHOLECALCIFEROL (D3) 1000 UNIT TABLET PO SCH (08:32)
[2020-12-21] MEDS: ASCORBIC ACID 500 MG TABLET PO SCH ×2 (08:32→21:04)
[2020-12-21] MEDS: FAMOTIDINE 20MG TABLET PO SCH ×2 (08:32→21:04)
[2020-12-21] MEDS: ENOXAPARIN 40MG/0.4ML SYR SUBCUT SCH (08:33)
[2020-12-21] MEDS: MIDAZOLAM HCL 100 MG in SODIUM CHLORIDE 0.9% 100 ML IV PRN ×2 (08:34→18:43)
[2020-12-21 09:37] LABS: BG CARBOXYHEMOGLOBIN 0.4 % (0.5-1.5); BG DEOXYHEMOGLOBIN 12.8 % (0.0-5.0); BG FRACTION INSPIRED OXYGEN 100; BG HCO3 ACT 26.9 mmol/L (22.0-26.0); BG METHEMOGLOBIN 0.1 % (0.0-1.5); BG OXYGEN SATURATION 87.1 % (92.0-98.5); BG OXYHEMOGLOBIN 86.7 % (94.0-97.0); BG PCO2 53.1 mmHg (35.0-45.0); BG PH 7.322 (7.350-7.450); BG PO2 56.6 mmHg (75.0-100.0); BG SAMPLE SITE LEFT RADIAL; BG TOTAL HEMOGLOBIN 13.5 g/dL (12.0-18.0); BG TOTAL RESPIRATORY RATE 24 b/min; BG VENT MODE VENT- PRVC
[2020-12-21 09:49] LABS: HEMATOCRIT. 37.8 % (36.0-48.0); HEMOGLOBIN. 12.4 g/dL (12.0-16.0); MEAN CORPUSCULAR HEMOGLOBIN 29.2 pg (28.0-32.0); MEAN CORPUSCULAR VOLUME 89.2 fL (81.0-99.0); MEAN PLATELET VOLUME 8.6 fl (7.4-10.4); PLATELET 300 x1000/uL (130-400); RED BLOOD CELL COUNT 4.24 mill/uL (4.2-5.4); RED CELL DISTRIBUTION WIDTH 13.1 % (11.6-14.6)
[2020-12-21 10:16] LABS: CHLORIDE 105 mEq/L (98-107)
[2020-12-21 11:31] LABS: PLATELET ESTIMATE NORMAL
[2020-12-21] MEDS: FENTANYL CITRATE/PF 2,500 MCG in SODIUM CHLORIDE 0.9% 200 ML IV PRN ×2 (12:03→21:22)
[2020-12-21] MEDS: MICAFUNGIN 150 MG in SODIUM CHLORIDE 0.9% 100 ML IV SCH (14:42)
[2020-12-21] MEDS: INSULIN GLARGINE UD 100 UNITS/ML SYR SUBCUT SCH (21:57)
[2020-12-22] VITALS (96 sets, daily range): BP systolic 79–198; BP diastolic 50–96
[2020-12-22] MEDS: BLOOD SUGAR DIAGNOSTIC STRIP TEST SCH ×5 (01:08→23:59)
[2020-12-22] MEDS: INSULIN LISPRO 100 UNITS/ML SUBCUT SCH ×4 (01:08→17:10)
[2020-12-22] MEDS: MIDAZOLAM HCL 100 MG in SODIUM CHLORIDE 0.9% 100 ML IV PRN ×2 (01:57→13:31)
[2020-12-22] MEDS: IPRATROPIUM/ALBUTEROL 0.5-3(2.5)MG/3ML NEB HHN SCH ×5 (04:34→20:28)
[2020-12-22 05:24] LABS: HEMATOCRIT. 34.9 % (36.0-48.0); HEMOGLOBIN. 11.6 g/dL (12.0-16.0); MEAN CORPUSCULAR HEMOGLOBIN 29.1 pg (28.0-32.0); MEAN CORPUSCULAR VOLUME 87.4 fL (81.0-99.0); MEAN PLATELET VOLUME 8.4 fl (7.4-10.4); PLATELET 234 x1000/uL (130-400); RED BLOOD CELL COUNT 3.99 mill/uL (4.2-5.4)
[2020-12-22 05:28] LABS: CHLORIDE 107 mEq/L (98-107)
[2020-12-22] MEDS: METHYLPREDNISOLONE SOD SUCC 125 MG/2 ML VIAL IV SCH ×3 (06:06→21:46)
[2020-12-22] MEDS: METOCLOPRAMIDE HCL 10MG/2ML VIAL IV SCH ×3 (06:09→17:09)
[2020-12-22] MEDS: FENTANYL CITRATE/PF 2,500 MCG in SODIUM CHLORIDE 0.9% 200 ML IV PRN ×3 (06:15→23:44)
[2020-12-22] MEDS: CHOLECALCIFEROL (D3) 1000 UNIT TABLET PO SCH (08:02)
[2020-12-22] MEDS: GUAIFENESIN/DM 600MG/30MG ER TAB 12HR PO SCH ×2 (08:02→21:03)
[2020-12-22] MEDS: ASPIRIN 81MG TABLET PO SCH (08:02)
[2020-12-22] MEDS: ZINC SULFATE 220 MG ( 50 ) CAPSULE PO SCH (08:03)
[2020-12-22] MEDS: ASCORBIC ACID 500 MG TABLET PO SCH ×2 (08:03→21:03)
[2020-12-22] MEDS: ENOXAPARIN 40MG/0.4ML SYR SUBCUT SCH (08:03)
[2020-12-22] MEDS: FAMOTIDINE 20MG TABLET PO SCH ×2 (08:03→21:03)
[2020-12-22 08:18] LABS: BG BASE EXCESS 1.3 mmol/L (-2.0-2.0); BG CARBOXYHEMOGLOBIN 0.3 % (0.5-1.5); BG DEOXYHEMOGLOBIN 4.8 % (0.0-5.0); BG HCO3 ACT 26.2 mmol/L (22.0-26.0); BG METHEMOGLOBIN 0.2 % (0.0-1.5); BG OXYGEN SATURATION 95.2 % (92.0-98.5); BG OXYHEMOGLOBIN 94.7 % (94.0-97.0); BG PCO2 42.3 mmHg (35.0-45.0); BG PH 7.409 (7.350-7.450); BG PO2 78.9 mmHg (75.0-100.0); BG SAMPLE SITE RIGHT RADIAL; BG TOTAL HEMOGLOBIN 12.2 g/dL (12.0-18.0); BG VENT MODE VENT- PRVC
[2020-12-22] MEDS: PROPOFOL 10MG/ML 100ML 100 ML IV PRN ×4 (08:32→22:23)
[2020-12-22] MEDS ORDERED: LACTULOSE 20G/30ML UDC PO NR (11:00)
[2020-12-22 13:51] LABS: PLATELET ESTIMATE NORMAL
[2020-12-22] MEDS: MICAFUNGIN 150 MG in SODIUM CHLORIDE 0.9% 100 ML IV SCH (13:55)
[2020-12-22] MEDS: INSULIN GLARGINE UD 100 UNITS/ML SYR SUBCUT SCH (21:45)
[2020-12-23] VITALS (98 sets, daily range): BP systolic 76–211; BP diastolic 49–106
[2020-12-23] MEDS: METOCLOPRAMIDE HCL 10MG/2ML VIAL IV SCH ×5 (00:19→23:00)
[2020-12-23] MEDS: INSULIN LISPRO 100 UNITS/ML SUBCUT SCH ×5 (00:27→23:00)
[2020-12-23] MEDS: IPRATROPIUM/ALBUTEROL 0.5-3(2.5)MG/3ML NEB HHN SCH ×5 (00:34→20:50)
[2020-12-23] MEDS: MIDAZOLAM HCL 100 MG in SODIUM CHLORIDE 0.9% 100 ML IV PRN ×2 (00:38→12:37)
[2020-12-23] MEDS: PROPOFOL 10MG/ML 100ML 100 ML IV PRN ×5 (02:49→21:30)
[2020-12-23] MEDS: BLOOD SUGAR DIAGNOSTIC STRIP TEST SCH ×4 (05:43→23:00)
[2020-12-23] MEDS: METHYLPREDNISOLONE SOD SUCC 125 MG/2 ML VIAL IV SCH ×3 (05:48→21:28)
[2020-12-23 08:26] LABS: HEMATOCRIT. 34.5 % (36.0-48.0); HEMOGLOBIN. 11.2 g/dL (12.0-16.0); MEAN CORPUSCULAR HEMOGLOBIN 28.8 pg (28.0-32.0); MEAN CORPUSCULAR VOLUME 89.1 fL (81.0-99.0); MEAN PLATELET VOLUME 9.1 fl (7.4-10.4); PLATELET 209 x1000/uL (130-400); RED BLOOD CELL COUNT 3.87 mill/uL (4.2-5.4); RED CELL DISTRIBUTION WIDTH 13.2 % (11.6-14.6)
[2020-12-23] MEDS: ENOXAPARIN 40MG/0.4ML SYR SUBCUT SCH (08:27)
[2020-12-23] MEDS: ZINC SULFATE 220 MG ( 50 ) CAPSULE PO SCH (08:27)
[2020-12-23] MEDS: ASPIRIN 81MG TABLET PO SCH (08:27)
[2020-12-23] MEDS: FAMOTIDINE 20MG TABLET PO SCH ×2 (08:27→21:28)
[2020-12-23] MEDS: CHOLECALCIFEROL (D3) 1000 UNIT TABLET PO SCH (08:27)
[2020-12-23] MEDS: GUAIFENESIN/DM 600MG/30MG ER TAB 12HR PO SCH ×2 (08:27→21:00)
[2020-12-23 08:30] LABS: CHLORIDE 108 mEq/L (98-107)
[2020-12-23] MEDS: ASCORBIC ACID 500 MG TABLET PO SCH ×2 (09:01→21:28)
[2020-12-23] MEDS: FENTANYL CITRATE/PF 2,500 MCG in SODIUM CHLORIDE 0.9% 200 ML IV PRN ×2 (09:02→17:43)
[2020-12-23 09:22] LABS: BG BASE EXCESS 1.9 mmol/L (-2.0-2.0); BG CARBOXYHEMOGLOBIN 0.3 % (0.5-1.5); BG DEOXYHEMOGLOBIN 3.6 % (0.0-5.0); BG FRACTION INSPIRED OXYGEN 90; BG HCO3 ACT 26.5 mmol/L (22.0-26.0); BG METHEMOGLOBIN 0.1 % (0.0-1.5); BG OXYGEN SATURATION 96.4 % (92.0-98.5); BG PCO2 41.6 mmHg (35.0-45.0); BG PH 7.422 (7.350-7.450); BG PO2 89.8 mmHg (75.0-100.0); BG SAMPLE SITE RIGHT RADIAL; BG TOTAL HEMOGLOBIN 12.1 g/dL (12.0-18.0); BG VENT MODE VENT - PRVC
[2020-12-23] MEDS: BISACODYL 10MG SUPP PR PRN (10:07)
[2020-12-23 10:23] LABS: NUCLEATED RED BLOOD CELLS 1 /100 WBC
[2020-12-23 10:24] LABS: PLATELET ESTIMATE NORMAL
[2020-12-23] MEDS: MICAFUNGIN 150 MG in SODIUM CHLORIDE 0.9% 100 ML IV SCH (13:41)
[2020-12-23] MEDS: INSULIN GLARGINE UD 100 UNITS/ML SYR SUBCUT SCH (23:00)
[2020-12-24] VITALS (98 sets, daily range): BP systolic 79–193; BP diastolic 51–103
[2020-12-24] MEDS: IPRATROPIUM/ALBUTEROL 0.5-3(2.5)MG/3ML NEB HHN SCH ×6 (00:25→20:44)
[2020-12-24] MEDS: MIDAZOLAM HCL 100 MG in SODIUM CHLORIDE 0.9% 100 ML IV PRN ×3 (00:59→21:39)
[2020-12-24] MEDS: PROPOFOL 10MG/ML 100ML 100 ML IV PRN ×6 (01:04→22:55)
[2020-12-24] MEDS: FENTANYL CITRATE/PF 2,500 MCG in SODIUM CHLORIDE 0.9% 200 ML IV PRN ×3 (02:58→21:40)
[2020-12-24] MEDS: NOREPINEPHRINE 8 MG in DEXT 5% WATER 242 ML IV PRN (05:12)
[2020-12-24] MEDS: BLOOD SUGAR DIAGNOSTIC STRIP TEST SCH ×4 (05:12→23:09)
[2020-12-24 05:20] LABS: HEMATOCRIT. 36.8 % (36.0-48.0); MEAN CORPUSCULAR HEMOGLOBIN 29.1 pg (28.0-32.0); MEAN CORPUSCULAR VOLUME 89.2 fL (81.0-99.0); MEAN PLATELET VOLUME 8.7 fl (7.4-10.4); PLATELET 234 x1000/uL (130-400); RED BLOOD CELL COUNT 4.12 mill/uL (4.2-5.4); RED CELL DISTRIBUTION WIDTH 13.5 % (11.6-14.6)
[2020-12-24] MEDS: INSULIN LISPRO 100 UNITS/ML SUBCUT SCH ×4 (05:24→23:13)
[2020-12-24] MEDS: METHYLPREDNISOLONE SOD SUCC 125 MG/2 ML VIAL IV SCH ×3 (05:25→21:46)
[2020-12-24] MEDS: METOCLOPRAMIDE HCL 10MG/2ML VIAL IV SCH ×4 (05:25→23:04)
[2020-12-24 05:34] LABS: CHLORIDE 114 mEq/L (98-107)
[2020-12-24 08:15] LABS: PLATELET ESTIMATE NORMAL
[2020-12-24 08:30] LABS: BG BASE EXCESS 2.2 mmol/L (-2.0-2.0); BG CARBOXYHEMOGLOBIN 0.5 % (0.5-1.5); BG DEOXYHEMOGLOBIN 3.4 % (0.0-5.0); BG HCO3 ACT 27.6 mmol/L (22.0-26.0); BG METHEMOGLOBIN 0.3 % (0.0-1.5); BG OXYGEN SATURATION 96.6 % (92.0-98.5); BG OXYHEMOGLOBIN 95.8 % (94.0-97.0); BG PCO2 46.4 mmHg (35.0-45.0); BG PH 7.393 (7.350-7.450); BG PO2 87.1 mmHg (75.0-100.0); BG SAMPLE SITE RIGHT RADIAL; BG TOTAL HEMOGLOBIN 12.8 g/dL (12.0-18.0); BG VENT MODE VENT- PRVC
[2020-12-24] MEDS: FAMOTIDINE 20MG TABLET PO SCH ×2 (09:34→20:26)
[2020-12-24] MEDS: ZINC SULFATE 220 MG ( 50 ) CAPSULE PO SCH (09:34)
[2020-12-24] MEDS: BISACODYL 10MG SUPP PR PRN (09:34)
[2020-12-24] MEDS: ASCORBIC ACID 500 MG TABLET PO SCH ×2 (09:34→20:26)
[2020-12-24] MEDS: CHOLECALCIFEROL (D3) 1000 UNIT TABLET PO SCH (09:34)
[2020-12-24] MEDS: DOCUSATE SODIUM 100MG CAPSULE PO PRN (09:34)
[2020-12-24] MEDS: ENOXAPARIN 40MG/0.4ML SYR SUBCUT SCH (09:34)
[2020-12-24] MEDS: ASPIRIN 81MG TABLET PO SCH (09:34)
[2020-12-24] MEDS: GUAIFENESIN/DM 600MG/30MG ER TAB 12HR PO SCH ×2 (09:35→20:26)
[2020-12-24] MEDS: MICAFUNGIN 150 MG in SODIUM CHLORIDE 0.9% 100 ML IV SCH (14:52)
[2020-12-24] MEDS: INSULIN GLARGINE UD 100 UNITS/ML SYR SUBCUT SCH (21:47)
[2020-12-25] VITALS (94 sets, daily range): BP systolic 94–172; BP diastolic 53–93
[2020-12-25] MEDS: IPRATROPIUM/ALBUTEROL 0.5-3(2.5)MG/3ML NEB HHN SCH ×6 (00:11→20:29)
[2020-12-25] MEDS: PROPOFOL 10MG/ML 100ML 100 ML IV PRN ×5 (05:09→23:51)
[2020-12-25] MEDS: METOCLOPRAMIDE HCL 10MG/2ML VIAL IV SCH ×4 (05:09→23:18)
[2020-12-25] MEDS: METHYLPREDNISOLONE SOD SUCC 125 MG/2 ML VIAL IV SCH ×3 (05:09→22:00)
[2020-12-25] MEDS: BLOOD SUGAR DIAGNOSTIC STRIP TEST SCH ×4 (05:14→23:18)
[2020-12-25] MEDS: INSULIN LISPRO 100 UNITS/ML SUBCUT SCH ×4 (05:18→23:20)
[2020-12-25] MEDS: FENTANYL CITRATE/PF 2,500 MCG in SODIUM CHLORIDE 0.9% 200 ML IV PRN ×3 (06:08→20:53)
[2020-12-25] MEDS: MIDAZOLAM HCL 100 MG in SODIUM CHLORIDE 0.9% 100 ML IV PRN ×2 (06:08→18:42)
[2020-12-25] MEDS: ZINC SULFATE 220 MG ( 50 ) CAPSULE PO SCH (08:21)
[2020-12-25] MEDS: CHOLECALCIFEROL (D3) 1000 UNIT TABLET PO SCH (08:22)
[2020-12-25] MEDS: ASCORBIC ACID 500 MG TABLET PO SCH ×2 (08:22→20:05)
[2020-12-25] MEDS: FAMOTIDINE 20MG TABLET PO SCH ×2 (08:23→20:05)
[2020-12-25] MEDS: ASPIRIN 81MG TABLET PO SCH (08:23)
[2020-12-25] MEDS: ENOXAPARIN 40MG/0.4ML SYR SUBCUT SCH (08:24)
[2020-12-25] MEDS: GUAIFENESIN/DM 600MG/30MG ER TAB 12HR PO SCH ×2 (08:24→20:06)
[2020-12-25 09:24] LABS: BG BASE EXCESS 4.2 mmol/L (-2.0-2.0); BG CARBOXYHEMOGLOBIN 0.1 % (0.5-1.5); BG DEOXYHEMOGLOBIN 3.3 % (0.0-5.0); BG FRACTION INSPIRED OXYGEN 100; BG HCO3 ACT 29.1 mmol/L (22.0-26.0); BG METHEMOGLOBIN 0.2 % (0.0-1.5); BG OXYGEN SATURATION 96.7 % (92.0-98.5); BG OXYHEMOGLOBIN 96.4 % (94.0-97.0); BG PH 7.429 (7.350-7.450); BG PO2 89.7 mmHg (75.0-100.0); BG SAMPLE SITE LEFT RADIAL; BG TOTAL HEMOGLOBIN 11.8 g/dL (12.0-18.0); BG TOTAL RESPIRATORY RATE 24 b/min; BG VENT MODE VENT- PRVC
[2020-12-25] MEDS: DOCUSATE SODIUM 100MG CAPSULE PO PRN (12:21)
[2020-12-25] MEDS: MICAFUNGIN 150 MG in SODIUM CHLORIDE 0.9% 100 ML IV SCH (13:28)
[2020-12-25] MEDS: BISACODYL 10MG SUPP PR PRN (18:29)
[2020-12-25] MEDS: INSULIN GLARGINE UD 100 UNITS/ML SYR SUBCUT SCH (23:20)
[2020-12-26] VITALS (91 sets, daily range): BP systolic 94–154; BP diastolic 54–87
[2020-12-26] MEDS: IPRATROPIUM/ALBUTEROL 0.5-3(2.5)MG/3ML NEB HHN SCH ×6 (00:53→20:19)
[2020-12-26] MEDS: MIDAZOLAM HCL 100 MG in SODIUM CHLORIDE 0.9% 100 ML IV PRN ×2 (05:35→18:07)
[2020-12-26] MEDS: METHYLPREDNISOLONE SOD SUCC 125 MG/2 ML VIAL IV SCH ×3 (05:35→21:23)
[2020-12-26] MEDS: BLOOD SUGAR DIAGNOSTIC STRIP TEST SCH ×4 (05:35→23:51)
[2020-12-26] MEDS: INSULIN LISPRO 100 UNITS/ML SUBCUT SCH ×4 (05:36→23:51)
[2020-12-26] MEDS: METOCLOPRAMIDE HCL 10MG/2ML VIAL IV SCH ×4 (05:36→23:51)
[2020-12-26] MEDS: FENTANYL CITRATE/PF 2,500 MCG in SODIUM CHLORIDE 0.9% 200 ML IV PRN ×3 (05:49→23:53)
[2020-12-26 05:52] LABS: HEMATOCRIT. 32.6 % (36.0-48.0); HEMOGLOBIN. 11.1 g/dL (12.0-16.0); MEAN CORPUSCULAR HEMOGLOBIN 29.3 pg (28.0-32.0); MEAN CORPUSCULAR VOLUME 86.6 fL (81.0-99.0); MEAN PLATELET VOLUME 8.3 fl (7.4-10.4); PLATELET 179 x1000/uL (130-400); RED BLOOD CELL COUNT 3.77 mill/uL (4.2-5.4); RED CELL DISTRIBUTION WIDTH 13.5 % (11.6-14.6)
[2020-12-26 06:08] LABS: CHLORIDE 110 mEq/L (98-107)
[2020-12-26] MEDS ORDERED: GUAIFENESIN-DM 200MG-20MG/10ML UDC PO PRN (08:15)
[2020-12-26] MEDS: CHOLECALCIFEROL (D3) 1000 UNIT TABLET PO SCH (09:20)
[2020-12-26] MEDS: ASCORBIC ACID 500 MG TABLET PO SCH ×2 (09:20→20:41)
[2020-12-26] MEDS: ENOXAPARIN 40MG/0.4ML SYR SUBCUT SCH (09:20)
[2020-12-26] MEDS: ZINC SULFATE 220 MG ( 50 ) CAPSULE PO SCH (09:20)
[2020-12-26] MEDS: FAMOTIDINE 20MG TABLET PO SCH ×2 (09:20→20:41)
[2020-12-26] MEDS: ASPIRIN 81MG TABLET PO SCH (09:20)
[2020-12-26 09:59] LABS: BG BASE EXCESS 4.3 mmol/L (-2.0-2.0); BG CARBOXYHEMOGLOBIN 0.3 % (0.5-1.5); BG DEOXYHEMOGLOBIN 2.8 % (0.0-5.0); BG FRACTION INSPIRED OXYGEN 100; BG HCO3 ACT 28.6 mmol/L (22.0-26.0); BG METHEMOGLOBIN 0.2 % (0.0-1.5); BG OXYGEN SATURATION 97.2 % (92.0-98.5); BG OXYHEMOGLOBIN 96.7 % (94.0-97.0); BG PCO2 41.8 mmHg (35.0-45.0); BG PH 7.453 (7.350-7.450); BG PO2 94.2 mmHg (75.0-100.0); BG SAMPLE SITE LEFT RADIAL; BG VENT MODE VENT - PRVC
[2020-12-26] MEDS: PROPOFOL 10MG/ML 100ML 100 ML IV PRN ×2 (10:20→18:09)
[2020-12-26] MEDS: DEXTROSE 50% WATER 50ML SYRINGE IV PRN ×2 (12:38→20:48)
[2020-12-26] MEDS: MICAFUNGIN 150 MG in SODIUM CHLORIDE 0.9% 100 ML IV SCH (14:44)
[2020-12-26 15:58] LABS: PLATELET ESTIMATE NORMAL
[2020-12-26] MEDS: INSULIN GLARGINE UD 100 UNITS/ML SYR SUBCUT SCH (22:00)
[2020-12-27] VITALS (88 sets, daily range): BP systolic 82–128; BP diastolic 57–84
[2020-12-27] MEDS: IPRATROPIUM/ALBUTEROL 0.5-3(2.5)MG/3ML NEB HHN SCH ×6 (00:12→20:10)
[2020-12-27] MEDS: PROPOFOL 10MG/ML 100ML 100 ML IV PRN ×4 (02:25→20:15)
[2020-12-27] MEDS: MIDAZOLAM HCL 100 MG in SODIUM CHLORIDE 0.9% 100 ML IV PRN ×3 (03:26→20:14)
[2020-12-27] MEDS: BLOOD SUGAR DIAGNOSTIC STRIP TEST SCH ×3 (05:32→17:33)
[2020-12-27] MEDS: DEXTROSE 50% WATER 50ML SYRINGE IV PRN (05:32)
[2020-12-27] MEDS: METHYLPREDNISOLONE SOD SUCC 125 MG/2 ML VIAL IV SCH ×3 (05:32→21:18)
[2020-12-27] MEDS: INSULIN LISPRO 100 UNITS/ML SUBCUT SCH ×3 (05:32→17:33)
[2020-12-27] MEDS: METOCLOPRAMIDE HCL 10MG/2ML VIAL IV SCH ×3 (05:32→17:54)
[2020-12-27] MEDS: ASPIRIN 81MG TABLET PO SCH (08:43)
[2020-12-27] MEDS: ENOXAPARIN 40MG/0.4ML SYR SUBCUT SCH (08:43)
[2020-12-27] MEDS: FENTANYL CITRATE/PF 2,500 MCG in SODIUM CHLORIDE 0.9% 200 ML IV PRN ×2 (08:43→17:56)
[2020-12-27] MEDS: FAMOTIDINE 20MG TABLET PO SCH ×2 (08:44→21:17)
[2020-12-27] MEDS: ASCORBIC ACID 500 MG TABLET PO SCH ×2 (08:44→21:17)
[2020-12-27] MEDS: CHOLECALCIFEROL (D3) 1000 UNIT TABLET PO SCH (08:44)
[2020-12-27] MEDS: ZINC SULFATE 220 MG ( 50 ) CAPSULE PO SCH (08:44)
[2020-12-27 08:53] LABS: BG BASE EXCESS 4.4 mmol/L (-2.0-2.0); BG CARBOXYHEMOGLOBIN 0.7 % (0.5-1.5); BG DEOXYHEMOGLOBIN 13.8 % (0.0-5.0); BG HCO3 ACT 30.2 mmol/L (22.0-26.0); BG METHEMOGLOBIN 0.2 % (0.0-1.5); BG OXYGEN SATURATION 86.1 % (92.0-98.5); BG OXYHEMOGLOBIN 85.3 % (94.0-97.0); BG PCO2 50.1 mmHg (35.0-45.0); BG PH 7.398 (7.350-7.450); BG PO2 50.8 mmHg (75.0-100.0); BG SAMPLE SITE LEFT RADIAL; BG TOTAL HEMOGLOBIN 12.4 g/dL (12.0-18.0); BG VENT MODE VENT- PRVC
[2020-12-27] MEDS: DOCUSATE SODIUM SUGAR FREE 100MG/10ML UDC NG PRN (17:54)
[2020-12-27] MEDS: BISACODYL 10MG SUPP PR PRN (17:54)
[2020-12-27] MEDS: INSULIN GLARGINE UD 100 UNITS/ML SYR SUBCUT SCH (22:00)
[2020-12-28] VITALS (96 sets, daily range): BP systolic 82–146; BP diastolic 55–95
[2020-12-28] MEDS: IPRATROPIUM/ALBUTEROL 0.5-3(2.5)MG/3ML NEB HHN SCH ×6 (00:08→20:25)
[2020-12-28] MEDS: PROPOFOL 10MG/ML 100ML 100 ML IV PRN ×5 (00:34→21:12)
[2020-12-28] MEDS: FENTANYL CITRATE/PF 2,500 MCG in SODIUM CHLORIDE 0.9% 200 ML IV PRN ×3 (02:00→18:02)
[2020-12-28] MEDS: MIDAZOLAM HCL 100 MG in SODIUM CHLORIDE 0.9% 100 ML IV PRN ×2 (04:58→15:18)
[2020-12-28] MEDS: METOCLOPRAMIDE HCL 10MG/2ML VIAL IV SCH ×5 (05:16→23:15)
[2020-12-28] MEDS: INSULIN LISPRO 100 UNITS/ML SUBCUT SCH ×5 (05:16→23:17)
[2020-12-28] MEDS: BLOOD SUGAR DIAGNOSTIC STRIP TEST SCH ×5 (05:16→23:15)
[2020-12-28] MEDS: METHYLPREDNISOLONE SOD SUCC 125 MG/2 ML VIAL IV SCH ×3 (05:16→21:22)
[2020-12-28 05:47] LABS: HEMATOCRIT. 31.8 % (36.0-48.0); HEMOGLOBIN. 10.5 g/dL (12.0-16.0); MEAN CORPUSCULAR HEMOGLOBIN 29.2 pg (28.0-32.0); MEAN CORPUSCULAR VOLUME 88.2 fL (81.0-99.0); PLATELET 142 x1000/uL (130-400); RED BLOOD CELL COUNT 3.61 mill/uL (4.2-5.4); RED CELL DISTRIBUTION WIDTH 13.6 % (11.6-14.6)
[2020-12-28 05:49] LABS: CHLORIDE 107 mEq/L (98-107)
[2020-12-28 09:18] LABS: BG BASE EXCESS 3.9 mmol/L (-2.0-2.0); BG CARBOXYHEMOGLOBIN 0.6 % (0.5-1.5); BG DEOXYHEMOGLOBIN 10.3 % (0.0-5.0); BG FRACTION INSPIRED OXYGEN 100; BG HCO3 ACT 30.2 mmol/L (22.0-26.0); BG OXYGEN SATURATION 89.6 % (92.0-98.5); BG OXYHEMOGLOBIN 89.1 % (94.0-97.0); BG PCO2 53.4 mmHg (35.0-45.0); BG PO2 61.9 mmHg (75.0-100.0); BG SAMPLE SITE RIGHT RADIAL; BG TOTAL HEMOGLOBIN 11.4 g/dL (12.0-18.0); BG VENT MODE VENT - PRVC
[2020-12-28] MEDS: CHOLECALCIFEROL (D3) 1000 UNIT TABLET PO SCH (10:04)
[2020-12-28] MEDS: ASPIRIN 81MG TABLET PO SCH (10:04)
[2020-12-28] MEDS: FAMOTIDINE 20MG TABLET PO SCH ×2 (10:04→21:21)
[2020-12-28] MEDS: ASCORBIC ACID 500 MG TABLET PO SCH ×2 (10:05→21:21)
[2020-12-28] MEDS: ENOXAPARIN 40MG/0.4ML SYR SUBCUT SCH (10:05)
[2020-12-28] MEDS: ZINC SULFATE 220 MG ( 50 ) CAPSULE PO SCH (10:05)
[2020-12-28 10:41] LABS: PLATELET ESTIMATE NORMAL
[2020-12-28] MEDS ORDERED: VANCOMYCIN 1500MG in DEXTROSE 5% WATER 250ML IV NR (16:00)
[2020-12-28] MEDS ORDERED: CEFEPIME 1,000 MG in DEXTROSE 5% WATER 50 ML IV SCH (16:00)
[2020-12-28 18:50] LABS: CLARITY URINE CLOUDY (CLEAR); COLOR URINE DARK YELLOW (YELLOW); KETONES URINE TRACE (NEGATIVE); LEUKOCYTE ESTERASE URINE TRACE (NEGATIVE); NITRITE URINE NEGATIVE (NEGATIVE); OCCULT BLOOD URINE TRACE (NEGATIVE); PH URINE 5.5 (4.5-8.0); PROTEIN URINE 1+ (NEGATIVE); SPECIFIC GRAVITY URINE 1.038 (1.005-1.030); UROBILINOGEN URINE 0.2 E.U./dL (0.2-1.0)
[2020-12-28] MEDS: CEFEPIME 1,000 MG in DEXTROSE 5% WATER 50 ML IV SCH (21:22)
[2020-12-28] MEDS: INSULIN GLARGINE UD 100 UNITS/ML SYR SUBCUT SCH (23:17)
[2020-12-29] VITALS (94 sets, daily range): BP systolic 79–134; BP diastolic 50–71
[2020-12-29] MEDS: IPRATROPIUM/ALBUTEROL 0.5-3(2.5)MG/3ML NEB HHN SCH ×6 (00:21→21:35)
[2020-12-29] MEDS: FENTANYL CITRATE/PF 2,500 MCG in SODIUM CHLORIDE 0.9% 200 ML IV PRN ×3 (01:15→17:56)
[2020-12-29] MEDS: MIDAZOLAM HCL 100 MG in SODIUM CHLORIDE 0.9% 100 ML IV PRN ×3 (01:16→17:57)
[2020-12-29] MEDS: METOCLOPRAMIDE HCL 10MG/2ML VIAL IV SCH ×4 (06:15→23:57)
[2020-12-29] MEDS: METHYLPREDNISOLONE SOD SUCC 125 MG/2 ML VIAL IV SCH ×2 (06:15→13:14)
[2020-12-29] MEDS: BLOOD SUGAR DIAGNOSTIC STRIP TEST SCH ×4 (06:17→23:57)
[2020-12-29] MEDS: CEFEPIME 1,000 MG in DEXTROSE 5% WATER 50 ML IV SCH (06:17)
[2020-12-29] MEDS: INSULIN LISPRO 100 UNITS/ML SUBCUT SCH ×4 (06:18→23:58)
[2020-12-29 06:19] LABS: MEAN CORPUSCULAR HEMOGLOBIN 28.7 pg (28.0-32.0); MEAN PLATELET VOLUME 9.9 fl (7.4-10.4); PLATELET 147 x1000/uL (130-400); RED BLOOD CELL COUNT 3.48 mill/uL (4.2-5.4); RED CELL DISTRIBUTION WIDTH 13.8 % (11.6-14.6)
[2020-12-29] MEDS: PROPOFOL 10MG/ML 100ML 100 ML IV PRN ×4 (07:06→18:38)
[2020-12-29] MEDS: CHOLECALCIFEROL (D3) 1000 UNIT TABLET PO SCH (08:26)
[2020-12-29] MEDS: VANCOMYCIN 1 G PREMIX 200 ML IV SCH ×2 (08:26→17:57)
[2020-12-29] MEDS: ENOXAPARIN 40MG/0.4ML SYR SUBCUT SCH (08:26)
[2020-12-29] MEDS: FAMOTIDINE 20MG TABLET PO SCH ×2 (08:26→21:30)
[2020-12-29] MEDS: ZINC SULFATE 220 MG ( 50 ) CAPSULE PO SCH (08:26)
[2020-12-29] MEDS: ASPIRIN 81MG TABLET PO SCH (08:26)
[2020-12-29] MEDS: ASCORBIC ACID 500 MG TABLET PO SCH ×2 (08:26→21:30)
[2020-12-29 09:20] LABS: BG BASE EXCESS 2.7 mmol/L (-2.0-2.0); BG CARBOXYHEMOGLOBIN 0.7 % (0.5-1.5); BG DEOXYHEMOGLOBIN 9.2 % (0.0-5.0); BG FRACTION INSPIRED OXYGEN 100; BG HCO3 ACT 29.4 mmol/L (22.0-26.0); BG METHEMOGLOBIN 0.2 % (0.0-1.5); BG OXYGEN SATURATION 90.7 % (92.0-98.5); BG OXYHEMOGLOBIN 89.9 % (94.0-97.0); BG PH 7.338 (7.350-7.450); BG PO2 60.9 mmHg (75.0-100.0); BG SAMPLE SITE LEFT RADIAL; BG TOTAL HEMOGLOBIN 10.8 g/dL (12.0-18.0); BG VENT MODE VENT - PRVC
[2020-12-29 11:46] LABS: CHLORIDE 105 mEq/L (98-107)
[2020-12-29] MEDS: MEROPENEM 1,000 MG in SODIUM CHLORIDE 0.9% 100 ML IV SCH ×2 (13:14→21:31)
[2020-12-29 13:48] LABS: PLATELET ESTIMATE NORMAL
[2020-12-29] MEDS: METHYLPREDNISOLONE SOD SUCC 40 MG/ML VIAL IV SCH (17:07)
[2020-12-29] MEDS: INSULIN GLARGINE UD 100 UNITS/ML SYR SUBCUT SCH (23:58)
[2020-12-30] VITALS (93 sets, daily range): BP systolic 92–180; BP diastolic 56–108
[2020-12-30] MEDS: IPRATROPIUM/ALBUTEROL 0.5-3(2.5)MG/3ML NEB HHN SCH ×6 (01:14→20:56)
[2020-12-30] MEDS: FENTANYL CITRATE/PF 2,500 MCG in SODIUM CHLORIDE 0.9% 200 ML IV PRN ×3 (01:49→17:28)
[2020-12-30 05:14] LABS: HEMATOCRIT. 28.9 % (36.0-48.0); HEMOGLOBIN. 9.5 g/dL (12.0-16.0); MEAN CORPUSCULAR VOLUME 88.1 fL (81.0-99.0); MEAN PLATELET VOLUME 8.9 fl (7.4-10.4); PLATELET 165 x1000/uL (130-400); RED BLOOD CELL COUNT 3.28 mill/uL (4.2-5.4); RED CELL DISTRIBUTION WIDTH 13.8 % (11.6-14.6)
[2020-12-30 05:16] LABS: CHLORIDE 107 mEq/L (98-107)
[2020-12-30 05:26] LABS: VANCOMYCIN TROUGH 15.1 ug/mL (5.0-10.0)
[2020-12-30] MEDS: METOCLOPRAMIDE HCL 10MG/2ML VIAL IV SCH ×3 (05:33→17:54)
[2020-12-30] MEDS: VANCOMYCIN 1 G PREMIX 200 ML IV SCH ×2 (05:33→17:54)
[2020-12-30] MEDS: BLOOD SUGAR DIAGNOSTIC STRIP TEST SCH ×3 (05:34→17:48)
[2020-12-30] MEDS: MEROPENEM 1,000 MG in SODIUM CHLORIDE 0.9% 100 ML IV SCH ×3 (05:34→22:38)
[2020-12-30] MEDS: INSULIN LISPRO 100 UNITS/ML SUBCUT SCH ×3 (05:35→17:53)
[2020-12-30] MEDS: MIDAZOLAM HCL 100 MG in SODIUM CHLORIDE 0.9% 100 ML IV PRN ×2 (05:37→16:24)
[2020-12-30] MEDS: ZINC SULFATE 220 MG ( 50 ) CAPSULE PO SCH (08:37)
[2020-12-30] MEDS: ASPIRIN 81MG TABLET PO SCH (08:37)
[2020-12-30] MEDS: CHOLECALCIFEROL (D3) 1000 UNIT TABLET PO SCH (08:37)
[2020-12-30] MEDS: ASCORBIC ACID 500 MG TABLET PO SCH ×2 (08:37→20:55)
[2020-12-30] MEDS: METHYLPREDNISOLONE SOD SUCC 40 MG/ML VIAL IV SCH ×2 (08:37→17:54)
[2020-12-30] MEDS: ENOXAPARIN 40MG/0.4ML SYR SUBCUT SCH (08:37)
[2020-12-30] MEDS: FAMOTIDINE 20MG TABLET PO SCH ×2 (08:37→20:55)
[2020-12-30 08:53] LABS: BG BASE EXCESS 3.9 mmol/L (-2.0-2.0); BG CARBOXYHEMOGLOBIN 0.1 % (0.5-1.5); BG DEOXYHEMOGLOBIN 6.6 % (0.0-5.0); BG FRACTION INSPIRED OXYGEN VENT- PRVC; BG HCO3 ACT 30.5 mmol/L (22.0-26.0); BG METHEMOGLOBIN 0.2 % (0.0-1.5); BG OXYGEN SATURATION 93.4 % (92.0-98.5); BG OXYHEMOGLOBIN 93.1 % (94.0-97.0); BG PCO2 56.7 mmHg (35.0-45.0); BG PH 7.348 (7.350-7.450); BG PO2 72.2 mmHg (75.0-100.0); BG SAMPLE SITE LEFT RADIAL
[2020-12-30 08:55] LABS: NUCLEATED RED BLOOD CELLS 1 /100 WBC; PLATELET ESTIMATE NORMAL
[2020-12-30] MEDS: PROPOFOL 10MG/ML 100ML 100 ML IV PRN ×5 (09:52→19:45)
[2020-12-30] MEDS: LACTULOSE 20G/30ML UDC PO SCH (13:30)
[2020-12-30] MEDS ORDERED: IOHEXOL-350 100 ML BOTTLE ONE (22:53)
[2020-12-30] MEDS: INSULIN GLARGINE UD 100 UNITS/ML SYR SUBCUT SCH (23:14)
[2020-12-30] MEDS: ENOXAPARIN 80MG/0.8ML SYR SUBCUT SCH (23:28)
[2020-12-31] VITALS (93 sets, daily range): BP systolic 96–179; BP diastolic 58–105
[2020-12-31] MEDS: BLOOD SUGAR DIAGNOSTIC STRIP TEST SCH ×5 (00:20→23:17)
[2020-12-31] MEDS: METOCLOPRAMIDE HCL 10MG/2ML VIAL IV SCH ×5 (00:22→23:17)
[2020-12-31] MEDS: INSULIN LISPRO 100 UNITS/ML SUBCUT SCH ×5 (00:23→23:17)
[2020-12-31] MEDS: IPRATROPIUM/ALBUTEROL 0.5-3(2.5)MG/3ML NEB HHN SCH ×7 (00:57→23:52)
[2020-12-31] MEDS: FENTANYL CITRATE/PF 2,500 MCG in SODIUM CHLORIDE 0.9% 200 ML IV PRN ×3 (01:57→17:35)
[2020-12-31] MEDS: PROPOFOL 10MG/ML 100ML 100 ML IV PRN ×3 (03:40→19:54)
[2020-12-31] MEDS: MIDAZOLAM HCL 100 MG in SODIUM CHLORIDE 0.9% 100 ML IV PRN ×3 (03:53→23:51)
[2020-12-31] MEDS: MEROPENEM 1,000 MG in SODIUM CHLORIDE 0.9% 100 ML IV SCH ×3 (05:37→21:52)
[2020-12-31] MEDS: VANCOMYCIN 1 G PREMIX 200 ML IV SCH ×2 (05:37→17:34)
[2020-12-31] MEDS: ASPIRIN 81MG TABLET PO SCH (08:30)
[2020-12-31] MEDS: METHYLPREDNISOLONE SOD SUCC 40 MG/ML VIAL IV SCH ×2 (08:30→17:34)
[2020-12-31] MEDS: LACTULOSE 20G/30ML UDC PO SCH (08:30)
[2020-12-31] MEDS: ZINC SULFATE 220 MG ( 50 ) CAPSULE PO SCH (08:30)
[2020-12-31] MEDS: ASCORBIC ACID 500 MG TABLET PO SCH ×2 (08:31→20:56)
[2020-12-31] MEDS: CHOLECALCIFEROL (D3) 1000 UNIT TABLET PO SCH (08:31)
[2020-12-31] MEDS: FAMOTIDINE 20MG TABLET PO SCH ×2 (08:31→20:56)
[2020-12-31 11:35] LABS: BG CARBOXYHEMOGLOBIN 0.6 % (0.5-1.5); BG DEOXYHEMOGLOBIN 3.3 % (0.0-5.0); BG FRACTION INSPIRED OXYGEN 100; BG METHEMOGLOBIN 0.3 % (0.0-1.5); BG OXYGEN SATURATION 96.7 % (92.0-98.5); BG OXYHEMOGLOBIN 95.8 % (94.0-97.0); BG PH 7.386 (7.350-7.450); BG PO2 94.4 mmHg (75.0-100.0); BG SAMPLE SITE LEFT RADIAL; BG TOTAL HEMOGLOBIN 9.9 g/dL (12.0-18.0); BG VENT MODE VENT - PRVC
[2020-12-31] MEDS: ENOXAPARIN 80MG/0.8ML SYR SUBCUT SCH ×2 (11:41→23:08)
[2020-12-31] MEDS: INSULIN GLARGINE UD 100 UNITS/ML SYR SUBCUT SCH (23:08)
[2021-01-01] VITALS (79 sets, daily range): BP systolic 88–181; BP diastolic 61–112
[2021-01-01] MEDS: FENTANYL CITRATE/PF 2,500 MCG in SODIUM CHLORIDE 0.9% 200 ML IV PRN ×3 (01:41→17:36)
[2021-01-01] MEDS: PROPOFOL 10MG/ML 100ML 100 ML IV PRN ×5 (03:09→20:04)
[2021-01-01] MEDS: IPRATROPIUM/ALBUTEROL 0.5-3(2.5)MG/3ML NEB HHN SCH ×5 (03:58→20:16)
[2021-01-01 04:55] LABS: HEMATOCRIT. 29.3 % (36.0-48.0); HEMOGLOBIN. 9.9 g/dL (12.0-16.0); MEAN CORPUSCULAR HEMOGLOBIN 29.5 pg (28.0-32.0); MEAN PLATELET VOLUME 8.2 fl (7.4-10.4); PLATELET 205 x1000/uL (130-400); RED BLOOD CELL COUNT 3.37 mill/uL (4.2-5.4)
[2021-01-01] MEDS: VANCOMYCIN 1 G PREMIX 200 ML IV SCH (05:07)
[2021-01-01] MEDS: BLOOD SUGAR DIAGNOSTIC STRIP TEST SCH ×4 (05:08→23:12)
[2021-01-01 05:18] LABS: PROTHROMBIN TIME 10.3 sec (9.6-11.0)
[2021-01-01 05:27] LABS: CHLORIDE 107 mEq/L (98-107)
[2021-01-01] MEDS: INSULIN LISPRO 100 UNITS/ML SUBCUT SCH ×4 (05:37→23:12)
[2021-01-01] MEDS: MEROPENEM 1,000 MG in SODIUM CHLORIDE 0.9% 100 ML IV SCH (05:57)
[2021-01-01] MEDS: METOCLOPRAMIDE HCL 10MG/2ML VIAL IV SCH ×4 (05:57→23:19)
[2021-01-01] MEDS: MIDAZOLAM HCL 100 MG in SODIUM CHLORIDE 0.9% 100 ML IV PRN ×2 (08:41→17:36)
[2021-01-01] MEDS: ASCORBIC ACID 500 MG TABLET PO SCH ×2 (08:42→20:01)
[2021-01-01] MEDS: FAMOTIDINE 20MG TABLET PO SCH ×2 (08:42→20:01)
[2021-01-01] MEDS: ZINC SULFATE 220 MG ( 50 ) CAPSULE PO SCH (08:42)
[2021-01-01] MEDS: METHYLPREDNISOLONE SOD SUCC 40 MG/ML VIAL IV SCH ×2 (08:42→17:36)
[2021-01-01] MEDS: ASPIRIN 81MG TABLET PO SCH (08:42)
[2021-01-01] MEDS: CHOLECALCIFEROL (D3) 1000 UNIT TABLET PO SCH (08:42)
[2021-01-01] MEDS: LACTULOSE 20G/30ML UDC PO SCH (08:58)
[2021-01-01 11:00] LABS: BG BASE EXCESS 8.4 mmol/L (-2.0-2.0); BG DEOXYHEMOGLOBIN 7.4 % (0.0-5.0); BG FRACTION INSPIRED OXYGEN 100; BG HCO3 ACT 33.4 mmol/L (22.0-26.0); BG OXYGEN SATURATION 92.5 % (92.0-98.5); BG OXYHEMOGLOBIN 91.6 % (94.0-97.0); BG PCO2 48.7 mmHg (35.0-45.0); BG PH 7.454 (7.350-7.450); BG PO2 62.9 mmHg (75.0-100.0); BG SAMPLE SITE LEFT RADIAL; BG TOTAL HEMOGLOBIN 10.4 g/dL (12.0-18.0); BG VENT MODE VENT - PRVC
[2021-01-01 11:01] LABS: PLATELET ESTIMATE NORMAL
[2021-01-01] MEDS: ENOXAPARIN 80MG/0.8ML SYR SUBCUT SCH ×2 (11:55→20:01)
[2021-01-01] MEDS ORDERED: ENOXAPARIN 80MG/0.8ML SYR SUBCUT SCH (14:21)
[2021-01-01] MEDS: CLONIDINE 0.1MG TABLET PO PRN (14:49)
[2021-01-01] MEDS: CEFEPIME 1,000 MG in DEXTROSE 5% WATER 50 ML IV SCH ×2 (14:49→23:19)
[2021-01-01 18:50] LABS: BG BASE EXCESS 5.2 mmol/L (-2.0-2.0); BG CARBOXYHEMOGLOBIN 0.8 % (0.5-1.5); BG DEOXYHEMOGLOBIN 11.2 % (0.0-5.0); BG FRACTION INSPIRED OXYGEN 100; BG HCO3 ACT 30.3 mmol/L (22.0-26.0); BG METHEMOGLOBIN 0.1 % (0.0-1.5); BG OXYGEN SATURATION 88.7 % (92.0-98.5); BG OXYHEMOGLOBIN 87.9 % (94.0-97.0); BG PH 7.427 (7.350-7.450); BG SAMPLE SITE RIGHT RADIAL; BG TOTAL HEMOGLOBIN 10.9 g/dL (12.0-18.0); BG VENT MODE VENT - PRVC
[2021-01-01] MEDS: INSULIN GLARGINE UD 100 UNITS/ML SYR SUBCUT SCH (22:00)
[2021-01-02] VITALS (81 sets, daily range): BP systolic 90–193; BP diastolic 57–126
[2021-01-02] MEDS: IPRATROPIUM/ALBUTEROL 0.5-3(2.5)MG/3ML NEB HHN SCH ×6 (00:27→20:56)
[2021-01-02] MEDS: FENTANYL CITRATE/PF 2,500 MCG in SODIUM CHLORIDE 0.9% 200 ML IV PRN ×3 (00:41→16:53)
[2021-01-02] MEDS: MIDAZOLAM HCL 100 MG in SODIUM CHLORIDE 0.9% 100 ML IV PRN ×3 (01:33→21:29)
[2021-01-02] MEDS: PROPOFOL 10MG/ML 100ML 100 ML IV PRN ×4 (02:44→21:19)
[2021-01-02 05:17] LABS: CHLORIDE 106 mEq/L (98-107)
[2021-01-02 05:19] LABS: HEMATOCRIT. 30.3 % (36.0-48.0); HEMOGLOBIN. 10.2 g/dL (12.0-16.0); MEAN CORPUSCULAR HEMOGLOBIN 29.5 pg (28.0-32.0); MEAN CORPUSCULAR VOLUME 87.2 fL (81.0-99.0); MEAN PLATELET VOLUME 8.1 fl (7.4-10.4); PLATELET 194 x1000/uL (130-400); RED BLOOD CELL COUNT 3.47 mill/uL (4.2-5.4)
[2021-01-02] MEDS: INSULIN LISPRO 100 UNITS/ML SUBCUT SCH ×4 (05:28→23:04)
[2021-01-02] MEDS: BLOOD SUGAR DIAGNOSTIC STRIP TEST SCH ×4 (05:28→23:01)
[2021-01-02] MEDS: METOCLOPRAMIDE HCL 10MG/2ML VIAL IV SCH ×4 (05:44→23:02)
[2021-01-02] MEDS: ENOXAPARIN 80MG/0.8ML SYR SUBCUT SCH ×2 (08:53→20:35)
[2021-01-02] MEDS: LACTULOSE 20G/30ML UDC PO SCH (08:53)
[2021-01-02] MEDS: METHYLPREDNISOLONE SOD SUCC 40 MG/ML VIAL IV SCH ×2 (08:54→17:30)
[2021-01-02] MEDS: CHOLECALCIFEROL (D3) 1000 UNIT TABLET PO SCH (08:54)
[2021-01-02] MEDS: ASPIRIN 81MG TABLET PO SCH (08:54)
[2021-01-02] MEDS: ZINC SULFATE 220 MG ( 50 ) CAPSULE PO SCH (08:54)
[2021-01-02] MEDS: ASCORBIC ACID 500 MG TABLET PO SCH ×2 (08:54→20:34)
[2021-01-02] MEDS: FAMOTIDINE 20MG TABLET PO SCH ×2 (08:54→20:34)
[2021-01-02] MEDS: CEFEPIME 1,000 MG in DEXTROSE 5% WATER 50 ML IV SCH ×2 (08:57→20:34)
[2021-01-02 09:35] LABS: PLATELET ESTIMATE NORMAL
[2021-01-02] MEDS: CLONIDINE 0.1MG TABLET PO PRN ×2 (10:03→18:30)
[2021-01-02 10:23] LABS: BG BASE EXCESS 3.9 mmol/L (-2.0-2.0); BG CARBOXYHEMOGLOBIN 0.8 % (0.5-1.5); BG DEOXYHEMOGLOBIN 5.4 % (0.0-5.0); BG FRACTION INSPIRED OXYGEN 90; BG HCO3 ACT 28.7 mmol/L (22.0-26.0); BG METHEMOGLOBIN 0.1 % (0.0-1.5); BG OXYGEN SATURATION 94.6 % (92.0-98.5); BG OXYHEMOGLOBIN 93.7 % (94.0-97.0); BG PH 7.432 (7.350-7.450); BG PO2 74.7 mmHg (75.0-100.0); BG SAMPLE SITE LEFT RADIAL; BG TOTAL HEMOGLOBIN 11.5 g/dL (12.0-18.0); BG TOTAL RESPIRATORY RATE 24 b/min; BG VENT MODE VENT- PRVC
[2021-01-02] MEDS: INSULIN GLARGINE UD 100 UNITS/ML SYR SUBCUT SCH (23:04)
[2021-01-03] VITALS (100 sets, daily range): BP systolic 81–162; BP diastolic 49–107
[2021-01-03] MEDS: FENTANYL CITRATE/PF 2,500 MCG in SODIUM CHLORIDE 0.9% 200 ML IV PRN ×4 (00:31→23:55)
[2021-01-03] MEDS: IPRATROPIUM/ALBUTEROL 0.5-3(2.5)MG/3ML NEB HHN SCH ×6 (00:45→20:33)
[2021-01-03] MEDS: PROPOFOL 10MG/ML 100ML 100 ML IV PRN ×5 (04:09→23:10)
[2021-01-03] MEDS: METOCLOPRAMIDE HCL 10MG/2ML VIAL IV SCH ×4 (05:29→23:07)
[2021-01-03] MEDS: INSULIN LISPRO 100 UNITS/ML SUBCUT SCH ×4 (05:29→23:02)
[2021-01-03] MEDS: BLOOD SUGAR DIAGNOSTIC STRIP TEST SCH ×4 (05:29→23:01)
[2021-01-03] MEDS: LACTULOSE 20G/30ML UDC PO SCH (08:27)
[2021-01-03] MEDS: CEFEPIME 1,000 MG in DEXTROSE 5% WATER 50 ML IV SCH ×2 (08:27→20:04)
[2021-01-03] MEDS: ZINC SULFATE 220 MG ( 50 ) CAPSULE PO SCH (08:28)
[2021-01-03] MEDS: CHOLECALCIFEROL (D3) 1000 UNIT TABLET PO SCH (08:28)
[2021-01-03] MEDS: FAMOTIDINE 20MG TABLET PO SCH ×2 (08:28→20:04)
[2021-01-03] MEDS: ENOXAPARIN 80MG/0.8ML SYR SUBCUT SCH ×2 (08:28→20:04)
[2021-01-03] MEDS: METHYLPREDNISOLONE SOD SUCC 40 MG/ML VIAL IV SCH ×2 (08:28→17:33)
[2021-01-03] MEDS: ASPIRIN 81MG TABLET PO SCH (08:28)
[2021-01-03] MEDS: ASCORBIC ACID 500 MG TABLET PO SCH ×2 (08:28→20:04)
[2021-01-03] MEDS: MIDAZOLAM HCL 100 MG in SODIUM CHLORIDE 0.9% 100 ML IV PRN ×3 (08:32→23:55)
[2021-01-03 09:31] LABS: BG BASE EXCESS 7.2 mmol/L (-2.0-2.0); BG DEOXYHEMOGLOBIN 23.9 % (0.0-5.0); BG FRACTION INSPIRED OXYGEN 100; BG HCO3 ACT 32.8 mmol/L (22.0-26.0); BG OXYGEN SATURATION 75.9 % (92.0-98.5); BG OXYHEMOGLOBIN 75.1 % (94.0-97.0); BG PCO2 50.9 mmHg (35.0-45.0); BG PH 7.427 (7.350-7.450); BG PO2 40.6 mmHg (75.0-100.0); BG SAMPLE SITE LEFT RADIAL; BG TOTAL HEMOGLOBIN 12.2 g/dL (12.0-18.0); BG TOTAL RESPIRATORY RATE 24 b/min; BG VENT MODE VENT- PRVC
[2021-01-03] MEDS: DOCUSATE SODIUM SUGAR FREE 100MG/10ML UDC NG PRN (17:33)
[2021-01-03] MEDS ORDERED: VECURONIUM BROMIDE 10 MG/VIAL IV ONE (20:45)
[2021-01-03] MEDS: INSULIN GLARGINE UD 100 UNITS/ML SYR SUBCUT SCH (23:02)
[2021-01-04] VITALS (93 sets, daily range): BP systolic 82–154; BP diastolic 31–102
[2021-01-04] MEDS: PHENYLEPHRINE 100 MG in DEXT 5% WATER 240 ML IV PRN (00:19)
[2021-01-04] MEDS: IPRATROPIUM/ALBUTEROL 0.5-3(2.5)MG/3ML NEB HHN SCH ×6 (00:38→20:00)
[2021-01-04] MEDS: PROPOFOL 10MG/ML 100ML 100 ML IV PRN ×5 (03:26→22:08)
[2021-01-04] MEDS: METOCLOPRAMIDE HCL 10MG/2ML VIAL IV SCH ×4 (05:07→22:59)
[2021-01-04] MEDS: MIDAZOLAM HCL 100 MG in SODIUM CHLORIDE 0.9% 100 ML IV PRN ×3 (05:40→19:40)
[2021-01-04] MEDS: FENTANYL CITRATE/PF 2,500 MCG in SODIUM CHLORIDE 0.9% 200 ML IV PRN ×3 (07:47→23:01)
[2021-01-04] MEDS: LACTULOSE 20G/30ML UDC PO SCH (08:30)
[2021-01-04] MEDS: ASCORBIC ACID 500 MG TABLET PO SCH ×2 (08:31→21:05)
[2021-01-04] MEDS: ENOXAPARIN 80MG/0.8ML SYR SUBCUT SCH ×2 (08:31→21:05)
[2021-01-04] MEDS: FAMOTIDINE 20MG TABLET PO SCH ×2 (08:31→21:05)
[2021-01-04] MEDS: ASPIRIN 81MG TABLET PO SCH (08:31)
[2021-01-04] MEDS: CHOLECALCIFEROL (D3) 1000 UNIT TABLET PO SCH (08:31)
[2021-01-04] MEDS: ZINC SULFATE 220 MG ( 50 ) CAPSULE PO SCH (08:31)
[2021-01-04] MEDS: CEFEPIME 1,000 MG in DEXTROSE 5% WATER 50 ML IV SCH ×2 (08:31→21:05)
[2021-01-04] MEDS: METHYLPREDNISOLONE SOD SUCC 40 MG/ML VIAL IV SCH ×2 (08:31→17:23)
[2021-01-04 10:18] LABS: BG BASE EXCESS 5.1 mmol/L (-2.0-2.0); BG DEOXYHEMOGLOBIN 10.8 % (0.0-5.0); BG FRACTION INSPIRED OXYGEN 100; BG HCO3 ACT 32.2 mmol/L (22.0-26.0); BG METHEMOGLOBIN 0.3 % (0.0-1.5); BG OXYGEN SATURATION 89.2 % (92.0-98.5); BG OXYHEMOGLOBIN 88.9 % (94.0-97.0); BG PCO2 62.2 mmHg (35.0-45.0); BG PH 7.332 (7.350-7.450); BG SAMPLE SITE LEFT RADIAL; BG TOTAL RESPIRATORY RATE 20 b/min; BG VENT MODE VENT- PRVC
[2021-01-04] MEDS ORDERED: DEXTROSE 50% WATER 50ML SYRINGE IV PRN (12:30)
[2021-01-04] MEDS: BLOOD SUGAR DIAGNOSTIC STRIP TEST SCH ×3 (12:30→23:01)
[2021-01-04] MEDS: INSULIN LISPRO 100 UNITS/ML SUBCUT SCH ×3 (12:34→23:00)
[2021-01-04] MEDS: INSULIN GLARGINE UD 100 UNITS/ML SYR SUBCUT SCH (23:00)
[2021-01-05] VITALS (97 sets, daily range): BP systolic 79–202; BP diastolic 43–107
[2021-01-05] MEDS: IPRATROPIUM/ALBUTEROL 0.5-3(2.5)MG/3ML NEB HHN SCH ×6 (00:42→20:37)
[2021-01-05] MEDS: MIDAZOLAM HCL 100 MG in SODIUM CHLORIDE 0.9% 100 ML IV PRN ×4 (02:12→21:46)
[2021-01-05] MEDS: PROPOFOL 10MG/ML 100ML 100 ML IV PRN ×6 (03:29→22:54)
[2021-01-05] MEDS: PHENYLEPHRINE 100 MG in DEXT 5% WATER 240 ML IV PRN (04:32)
[2021-01-05] MEDS: BLOOD SUGAR DIAGNOSTIC STRIP TEST SCH ×4 (05:04→23:04)
[2021-01-05] MEDS: INSULIN LISPRO 100 UNITS/ML SUBCUT SCH ×4 (05:04→23:04)
[2021-01-05] MEDS: METOCLOPRAMIDE HCL 10MG/2ML VIAL IV SCH ×4 (05:05→23:01)
[2021-01-05] MEDS: FENTANYL CITRATE/PF 2,500 MCG in SODIUM CHLORIDE 0.9% 200 ML IV PRN ×3 (06:22→20:43)
[2021-01-05 08:07] LABS: BG BASE EXCESS 7.1 mmol/L (-2.0-2.0); BG CARBOXYHEMOGLOBIN 0.3 % (0.5-1.5); BG DEOXYHEMOGLOBIN 8.3 % (0.0-5.0); BG HCO3 ACT 34.3 mmol/L (22.0-26.0); BG METHEMOGLOBIN 0.1 % (0.0-1.5); BG OXYGEN SATURATION 91.7 % (92.0-98.5); BG OXYHEMOGLOBIN 91.3 % (94.0-97.0); BG PCO2 64.6 mmHg (35.0-45.0); BG PH 7.343 (7.350-7.450); BG SAMPLE SITE LEFT RADIAL; BG TOTAL HEMOGLOBIN 9.9 g/dL (12.0-18.0); BG VENT MODE VENT- PRVC
[2021-01-05] MEDS: METHYLPREDNISOLONE SOD SUCC 40 MG/ML VIAL IV SCH ×2 (08:10→17:44)
[2021-01-05] MEDS: LACTULOSE 20G/30ML UDC PO SCH (08:10)
[2021-01-05] MEDS: ASPIRIN 81MG TABLET PO SCH (08:11)
[2021-01-05] MEDS: ENOXAPARIN 80MG/0.8ML SYR SUBCUT SCH ×2 (08:11→20:01)
[2021-01-05] MEDS: ZINC SULFATE 220 MG ( 50 ) CAPSULE PO SCH (08:12)
[2021-01-05] MEDS: CHOLECALCIFEROL (D3) 1000 UNIT TABLET PO SCH (08:12)
[2021-01-05] MEDS: CEFEPIME 1,000 MG in DEXTROSE 5% WATER 50 ML IV SCH ×2 (08:13→20:01)
[2021-01-05 10:44] LABS: CHLORIDE 105 mEq/L (98-107)
[2021-01-05 10:46] LABS: HEMATOCRIT. 27.6 % (36.0-48.0); HEMOGLOBIN. 9.4 g/dL (12.0-16.0); MEAN CORPUSCULAR HEMOGLOBIN 29.8 pg (28.0-32.0); MEAN CORPUSCULAR VOLUME 87.7 fL (81.0-99.0); MEAN PLATELET VOLUME 8.8 fl (7.4-10.4); PLATELET 290 x1000/uL (130-400); RED BLOOD CELL COUNT 3.15 mill/uL (4.2-5.4); RED CELL DISTRIBUTION WIDTH 14.7 % (11.6-14.6)
[2021-01-05 14:52] LABS: PLATELET ESTIMATE NORMAL
[2021-01-05] MEDS: MULTIVITAMINS,THER W-MINERALS TABLET PO SCH (20:01)
[2021-01-05] MEDS: INSULIN GLARGINE UD 100 UNITS/ML SYR SUBCUT SCH (23:04)
[2021-01-06] VITALS (98 sets, daily range): BP systolic 55–189; BP diastolic 32–109
[2021-01-06] MEDS: IPRATROPIUM/ALBUTEROL 0.5-3(2.5)MG/3ML NEB HHN SCH ×7 (00:36→23:57)
[2021-01-06] MEDS: MIDAZOLAM HCL 100 MG in SODIUM CHLORIDE 0.9% 100 ML IV PRN ×3 (03:58→19:35)
[2021-01-06] MEDS: FENTANYL CITRATE/PF 2,500 MCG in SODIUM CHLORIDE 0.9% 200 ML IV PRN ×3 (03:59→20:47)
[2021-01-06] MEDS: PROPOFOL 10MG/ML 100ML 100 ML IV PRN ×5 (04:09→21:19)
[2021-01-06 05:02] LABS: BASOPHILS % 0.6 % (0.0-2.0); CHLORIDE 106 mEq/L (98-107); EOSINOPHILS % 0.3 % (0.0-5.0); HEMATOCRIT. 27.8 % (36.0-48.0); HEMOGLOBIN. 9.4 g/dL (12.0-16.0); LYMPHOCYTES % 7.3 % (20.0-50.0); MEAN CORPUSCULAR VOLUME 88.6 fL (81.0-99.0); MEAN PLATELET VOLUME 8.5 fl (7.4-10.4); MONOCYTES % 3.5 % (2.0-8.0); NEUTROPHILS % 88.3 % (40.0-76.0); PLATELET 275 x1000/uL (130-400); RED BLOOD CELL COUNT 3.13 mill/uL (4.2-5.4); RED CELL DISTRIBUTION WIDTH 14.5 % (11.6-14.6)
[2021-01-06] MEDS: METOCLOPRAMIDE HCL 10MG/2ML VIAL IV SCH ×3 (05:03→17:51)
[2021-01-06] MEDS: BLOOD SUGAR DIAGNOSTIC STRIP TEST SCH ×3 (05:03→17:51)
[2021-01-06] MEDS: INSULIN LISPRO 100 UNITS/ML SUBCUT SCH ×3 (05:04→17:52)
[2021-01-06] MEDS: PHENYLEPHRINE 100 MG in DEXT 5% WATER 240 ML IV PRN (06:45)
[2021-01-06] MEDS: ASPIRIN 81MG TABLET PO SCH (08:19)
[2021-01-06] MEDS: CEFEPIME 1,000 MG in DEXTROSE 5% WATER 50 ML IV SCH (08:19)
[2021-01-06] MEDS: METHYLPREDNISOLONE SOD SUCC 40 MG/ML VIAL IV SCH ×2 (08:20→17:51)
[2021-01-06] MEDS: MULTIVITAMINS,THER W-MINERALS TABLET PO SCH (08:20)
[2021-01-06] MEDS: LACTULOSE 20G/30ML UDC PO SCH (08:20)
[2021-01-06] MEDS: ENOXAPARIN 80MG/0.8ML SYR SUBCUT SCH ×2 (08:21→20:49)
[2021-01-06 09:09] LABS: BG BASE EXCESS 7.5 mmol/L (-2.0-2.0); BG CARBOXYHEMOGLOBIN 0.1 % (0.5-1.5); BG DEOXYHEMOGLOBIN 2.3 % (0.0-5.0); BG FRACTION INSPIRED OXYGEN 100; BG HCO3 ACT 31.7 mmol/L (22.0-26.0); BG METHEMOGLOBIN 0.3 % (0.0-1.5); BG OXYGEN SATURATION 97.7 % (92.0-98.5); BG OXYHEMOGLOBIN 97.3 % (94.0-97.0); BG PCO2 43.8 mmHg (35.0-45.0); BG PH 7.478 (7.350-7.450); BG PO2 96.1 mmHg (75.0-100.0); BG SAMPLE SITE LEFT RADIAL; BG TOTAL HEMOGLOBIN 9.6 g/dL (12.0-18.0); BG VENT MODE PRVC
[2021-01-06] MEDS: INSULIN GLARGINE UD 100 UNITS/ML SYR SUBCUT SCH (21:05)
[2021-01-07] VITALS (95 sets, daily range): BP systolic 74–186; BP diastolic 48–102
[2021-01-07] MEDS: BLOOD SUGAR DIAGNOSTIC STRIP TEST SCH ×4 (00:04→17:15)
[2021-01-07] MEDS: METOCLOPRAMIDE HCL 10MG/2ML VIAL IV SCH ×4 (00:04→17:15)
[2021-01-07] MEDS: PROPOFOL 10MG/ML 100ML 100 ML IV PRN ×5 (01:06→20:30)
[2021-01-07] MEDS: MIDAZOLAM HCL 100 MG in SODIUM CHLORIDE 0.9% 100 ML IV PRN ×3 (02:58→16:31)
[2021-01-07] MEDS: IPRATROPIUM/ALBUTEROL 0.5-3(2.5)MG/3ML NEB HHN SCH ×5 (03:59→20:06)
[2021-01-07] MEDS: FENTANYL CITRATE/PF 2,500 MCG in SODIUM CHLORIDE 0.9% 200 ML IV PRN ×2 (05:10→12:34)
[2021-01-07] MEDS: INSULIN LISPRO 100 UNITS/ML SUBCUT SCH ×4 (05:23→18:00)
[2021-01-07 06:01] LABS: CHLORIDE 106 mEq/L (98-107)
[2021-01-07 06:03] LABS: MEAN CORPUSCULAR HEMOGLOBIN 29.9 pg (28.0-32.0); MEAN CORPUSCULAR VOLUME 89.4 fL (81.0-99.0); MEAN PLATELET VOLUME 8.7 fl (7.4-10.4); PLATELET 282 x1000/uL (130-400); RED BLOOD CELL COUNT 3.35 mill/uL (4.2-5.4); RED CELL DISTRIBUTION WIDTH 14.6 % (11.6-14.6)
[2021-01-07] MEDS: PHENYLEPHRINE 100 MG in DEXT 5% WATER 240 ML IV PRN ×3 (07:06→22:42)
[2021-01-07] MEDS: NOREPINEPHRINE 8 MG in DEXT 5% WATER 242 ML IV PRN ×3 (07:06→22:42)
[2021-01-07] MEDS ORDERED: SODIUM BICARBONATE 8.4% 1 MEQ/ML 50ML SYR IV ONE ×2 (08:46)
[2021-01-07] MEDS ORDERED: EPINEPHRINE 0.1MG/ML (1:10,000) 10ML SYR ONE (08:46)
[2021-01-07] MEDS ORDERED: DEXTROSE 50% WATER 50ML SYRINGE IV ONE ×2 (08:46)
[2021-01-07] MEDS ORDERED: ADENOSINE 3 MG/ML 2ML VIAL IV ONE (08:46)
[2021-01-07] MEDS ORDERED: CALCIUM CHLORIDE 1GM/10ML SYR IV ONE (08:46)
[2021-01-07 08:56] LABS: BG BASE EXCESS 4.3 mmol/L (-2.0-2.0); BG CARBOXYHEMOGLOBIN 0.7 % (0.5-1.5); BG DEOXYHEMOGLOBIN 9.1 % (0.0-5.0); BG HCO3 ACT 32.2 mmol/L (22.0-26.0); BG METHEMOGLOBIN 0.4 % (0.0-1.5); BG OXYGEN SATURATION 90.8 % (92.0-98.5); BG OXYHEMOGLOBIN 89.8 % (94.0-97.0); BG PCO2 66.4 mmHg (35.0-45.0); BG PH 7.303 (7.350-7.450); BG PO2 64.7 mmHg (75.0-100.0); BG SAMPLE SITE LEFT RADIAL; BG TOTAL HEMOGLOBIN 11.2 g/dL (12.0-18.0); BG VENT MODE VENT- PRVC
[2021-01-07] MEDS: ENOXAPARIN 80MG/0.8ML SYR SUBCUT SCH ×2 (09:50→22:30)
[2021-01-07] MEDS: MULTIVITAMINS,THER W-MINERALS TABLET PO SCH (09:50)
[2021-01-07] MEDS: ASPIRIN 81MG TABLET PO SCH (09:50)
[2021-01-07] MEDS: LACTULOSE 20G/30ML UDC PO SCH (09:50)
[2021-01-07] MEDS: METHYLPREDNISOLONE SOD SUCC 40 MG/ML VIAL IV SCH ×2 (09:50→17:15)
[2021-01-07 10:11] LABS: PLATELET ESTIMATE NORMAL
[2021-01-07 15:47] LABS: BG BASE EXCESS 0.4 mmol/L (-2.0-2.0); BG CARBOXYHEMOGLOBIN 0.3 % (0.5-1.5); BG DEOXYHEMOGLOBIN 10.8 % (0.0-5.0); BG HCO3 ACT 28.1 mmol/L (22.0-26.0); BG METHEMOGLOBIN 0.2 % (0.0-1.5); BG OXYGEN SATURATION 89.1 % (92.0-98.5); BG OXYHEMOGLOBIN 88.7 % (94.0-97.0); BG PCO2 60.9 mmHg (35.0-45.0); BG PH 7.282 (7.350-7.450); BG PO2 61.4 mmHg (75.0-100.0); BG SAMPLE SITE LEFT RADIAL; BG TOTAL HEMOGLOBIN 11.2 g/dL (12.0-18.0); BG VENT MODE VENT- PRVC
[2021-01-07] MEDS ORDERED: SODIUM BICARBONATE 8.4% 1 MEQ/ML 50ML SYR IV NR ×3 (16:00→23:15)
[2021-01-07 19:23] LABS: BG BASE EXCESS 2.3 mmol/L (-2.0-2.0); BG DEOXYHEMOGLOBIN 21.5 % (0.0-5.0); BG FRACTION INSPIRED OXYGEN 100; BG HCO3 ACT 28.6 mmol/L (22.0-26.0); BG METHEMOGLOBIN 0.2 % (0.0-1.5); BG OXYGEN SATURATION 78.5 % (92.0-98.5); BG OXYHEMOGLOBIN 78.3 % (94.0-97.0); BG PCO2 52.1 mmHg (35.0-45.0); BG PH 7.357 (7.350-7.450); BG PO2 44.6 mmHg (75.0-100.0); BG TOTAL HEMOGLOBIN 10.9 g/dL (12.0-18.0); BG VENT MODE PRVC
[2021-01-07] MEDS: INSULIN GLARGINE UD 100 UNITS/ML SYR SUBCUT SCH (22:00)
[2021-01-07 22:48] LABS: BG FRACTION INSPIRED OXYGEN 100; BG HCO3 ACT 21.2 mmol/L (22.0-26.0); BG METHEMOGLOBIN 0.2 % (0.0-1.5); BG OXYGEN SATURATION 63.9 % (92.0-98.5); BG OXYHEMOGLOBIN 63.8 % (94.0-97.0); BG PCO2 66.8 mmHg (35.0-45.0); BG PO2 41.2 mmHg (75.0-100.0); BG SAMPLE SITE RIGHT FEMORAL; BG TOTAL HEMOGLOBIN 8.5 g/dL (12.0-18.0); BG VENT MODE VENT -PRVC
[2021-01-08] VITALS (18 sets, daily range): BP systolic 61–152; BP diastolic 29–104
[2021-01-08] MEDS: EPINEPHRINE 10 MG in SODIUM CHLORIDE 0.9% 240 ML IV PRN ×2 (00:13→05:11)
[2021-01-08 00:48] LABS: BG BASE EXCESS -1.5 mmol/L (-2.0-2.0); BG CARBOXYHEMOGLOBIN 0.1 % (0.5-1.5); BG DEOXYHEMOGLOBIN 29.5 % (0.0-5.0); BG FRACTION INSPIRED OXYGEN 100; BG HCO3 ACT 25.9 mmol/L (22.0-26.0); BG METHEMOGLOBIN 0.3 % (0.0-1.5); BG OXYGEN SATURATION 70.4 % (92.0-98.5); BG OXYHEMOGLOBIN 70.1 % (94.0-97.0); BG PCO2 58.7 mmHg (35.0-45.0); BG PH 7.263 (7.350-7.450); BG PO2 40.1 mmHg (75.0-100.0); BG SAMPLE SITE RIGHT FEMORAL; BG TOTAL HEMOGLOBIN 9.3 g/dL (12.0-18.0); BG VENT MODE VENT-PRVC
[2021-01-08] MEDS: IPRATROPIUM/ALBUTEROL 0.5-3(2.5)MG/3ML NEB HHN SCH (00:58)
[2021-01-08] MEDS ORDERED: SODIUM BICARBONATE 8.4% 1 MEQ/ML 50ML SYR IV NR ×3 (01:00→01:15)
[2021-01-08] MEDS ORDERED: SODIUM BICARBONATE 100 MEQ in DEXTROSE 5% WATER 1,000 ML IV SCH (01:00)
[2021-01-08] MEDS: NOREPINEPHRINE 8 MG in DEXT 5% WATER 242 ML IV PRN ×2 (01:04→05:12)
[2021-01-08 04:56] LABS: BASOPHILS % 0.3 % (0.0-2.0); EOSINOPHILS % 2.3 % (0.0-5.0); HEMATOCRIT. 28.4 % (36.0-48.0); HEMOGLOBIN. 9.3 g/dL (12.0-16.0); LYMPHOCYTES % 14.6 % (20.0-50.0); MEAN CORPUSCULAR HEMOGLOBIN 30.6 pg (28.0-32.0); MEAN CORPUSCULAR VOLUME 93.3 fL (81.0-99.0); MEAN PLATELET VOLUME 9.4 fl (7.4-10.4); MONOCYTES % 1.5 % (2.0-8.0); NEUTROPHILS % 81.3 % (40.0-76.0); PLATELET 212 x1000/uL (130-400); RED BLOOD CELL COUNT 3.04 mill/uL (4.2-5.4); RED CELL DISTRIBUTION WIDTH 15.6 % (11.6-14.6)
[2021-01-08 05:03] LABS: CHLORIDE 98 mEq/L (98-107)
[2021-01-08] MEDS: METOCLOPRAMIDE HCL 10MG/2ML VIAL IV SCH ×2 (05:10)
[2021-01-08] MEDS: BLOOD SUGAR DIAGNOSTIC STRIP TEST SCH ×2 (05:10)
[2021-01-08] MEDS: INSULIN LISPRO 100 UNITS/ML SUBCUT SCH ×2 (05:10)
[2021-01-08] MEDS: PHENYLEPHRINE 100 MG in DEXT 5% WATER 240 ML IV PRN (05:11)
[2021-01-08] MEDS ORDERED: EPINEPHRINE 0.1MG/ML (1:10,000) 10ML SYR ONE (08:47)
[2021-01-08] MEDS ORDERED: SODIUM BICARBONATE 8.4% 1 MEQ/ML 50ML SYR IV ONE (08:47)
[2021-01-08] MEDS ORDERED: DEXTROSE 50% WATER 50ML SYRINGE IV ONE (08:47)
== END 2021-01-08 05:30 | DRG 720 ==
LOC: ER 13:12 → MICUSO 15:40 → EDBEDREQ 15:42 → EDBEDREQTM 15:42 → 7WST 12-08 14:38 → 3WST 12-16 13:45 → MICUSO 12-18 07:00 → MICUNO 12-23 23:30
PROVIDERS: ADMIT Internal Medicine; ATTEND Internal Medicine
PROC: 5A1955Z Respiratory Ventilation, Greater than 96 Consecutive Hours (ICD-10-PCS; 2020-12-18)
PROC: 0BH17EZ Insertion of Endotracheal Airway into Trachea, Via Natural or Artificial Opening (ICD-10-PCS; 2020-12-18)
PROC: 5A09357 Assistance with Respiratory Ventilation, Less than 24 Consecutive Hours, Continuous Positive Airway Pressure (ICD-10-PCS; 2020-12-18)
PROC: 02H633Z Insertion of Infusion Device into Right Atrium, Percutaneous Approach (ICD-10-PCS; 2020-12-19)
PROC: B548ZZA Ultrasonography of Superior Vena Cava, Guidance (ICD-10-PCS; 2020-12-19)
PROC: 5A12012 Performance of Cardiac Output, Single, Manual (ICD-10-PCS; principal; 2021-01-08)
DX: A41.89 Other specified sepsis (principal); I26.99 Other pulmonary embolism without acute cor pulmonale; J80 Acute respiratory distress syndrome; J12.82 Pneumonia due to coronavirus disease 2019; R65.21 Severe sepsis with septic shock; L89.816 Pressure-induced deep tissue damage of head; J85.0 Gangrene and necrosis of lung; U07.1 COVID-19; E44.1 Mild protein-calorie malnutrition; L89.896 Pressure-induced deep tissue damage of other site; J93.9 Pneumothorax, unspecified; E11.65 Type 2 diabetes mellitus with hyperglycemia; E87.1 Hypo-osmolality and hyponatremia; I10 Essential (primary) hypertension; T38.0X5A Adverse effect of glucocorticoids and synthetic analogues, initial encounter; Z78.9 Other specified health status; Z68.28 Body mass index [BMI] 28.0-28.9, adult; Z79.52 Long term (current) use of systemic steroids; Z99.11 Dependence on respirator [ventilator] status; Y92.89 Other specified places as the place of occurrence of the external cause
CPT/HCPCS: 36415; 36600; 71045; 71275; 76937; 80048; 80053; 80202; 80305; 80320; 81003; 82040; 82375; 82550; 82553; 82805; 82962; 83036; 83615; 83735; 83880; 84100; 84134; 84145; 84439; 84443; 84478; 84481; 84484; 85025; 85379; 86140; 87070; 87106; 87426; 87804; 93005; 93306; 93970; 94002; 94003; 94640; 94660; 99291; A6261; C1725; C1769; J0153; J0456; J0692; J0696; J1100; J1650; J1815; J1885; J2185; J2248; J2250; J2370; J2405; J2704; J2765; J2920; J2930; J3010; J3370; J3490; J7040; J7050; J7060; J7070; Q9967; U0003; U0005; A4315; G0480